=== PATIENT | female | born 1965 | race Caucasian/White ===

== ENCOUNTER → 2025-01-05 10:25 | Outpatient (CLI) | payer OTHER, SELFPAY ==
--- NOTE | ~2025-01-05 | XR_ITS ---
EXAM: XR thoracic spine 2V DATE: 01/05/2025 11:02 HISTORY: mid back pain radiates to LT side 4weeks no injury or trauma . COMPARISON: None available. FINDINGS: Right hemidiaphragm elevation. Subsegmental right basilar airspace disease. Mild right cos tophrenic angle blunting. Multilevel moderate disc space narrowing and mild marginal osteophytosis. M ultiple level mild facet hypertrophy and sclerosis. Mild anterior wedge deformity at T8. Remaining malia dy heights are maintained. IMPRESSION: Mild anterior wedge deformity at T8, may represent mild acute or chronic compression fracture. Correl ate with pain/tenderness. Right hemidiaphragm elevation, consider fluoroscopy to evaluate for diaphragmatic paralysis. Subsegmental right basilar atelectasis/consolidation. Small right pleural effusion. Reviewed, dictated and finalized at location K. IMPRESSION: Mild anterior wedge deformity at T8, may represent mild acute or chronic compre ssion fracture. Correlate with pain/tenderness. Right hemidiaphragm elevation, consider fluoroscopy to evaluate for diaphragmat ic paralysis. Subsegmental right basilar atelectasis/consolidation. Small right pleural effus ion.
== END ==
PROVIDERS: PCP Nurse Practitioner Family; Visit Provider Nurse Practitioner Family
DX: M43.8X4 Other specified deforming dorsopathies, thoracic region (principal); R91.8 Other nonspecific abnormal finding of lung field; J98.6 Disorders of diaphragm; J98.8 Other specified respiratory disorders
CPT/HCPCS: 72070

== ENCOUNTER 2025-01-06 12:20 | Outpatient (CLI) | payer OTHER, SELFPAY ==
--- NOTE | ~2025-01-06 | MM_ITS ---
EXAMINATION: MM screening mira BI w suman HISTORY: Screening TECHNIQUE: Craniocaudal and mediolateral oblique 3-D tomosynthesis images were obtained and synthetic 2-D images were generated. CAD analysis was submitted and interpreted. COMPARISON: No prior mammogram is available for comparison at this institution. BREAST PARENCHYMAL COMPOSITION: Not dense: There are scattered areas of fibroglandular density. FINDINGS: There is no evidence of suspicious mass, calcification, or architectural distortion to sugg est malignancy in either breast. There has been no suspicious interval change. IMPRESSION: 1. No mammographic evidence of malignancy. 2. Recommend routine screening mammography in one year. BI-RADS Category 1: Negative Reviewed, dictated and finalized at location B.
== END 2025-01-06 12:21 | disposition home or self-care (01) ==
PROVIDERS: PCP Nurse Practitioner Family; Visit Provider Family Medicine
DX: Z12.31 Encounter for screening mammogram for malignant neoplasm of breast (principal)
CPT/HCPCS: 77063; 77067

== ENCOUNTER 2025-01-16 08:07 | Outpatient (CLI) | payer OTHER, SELFPAY ==
--- NOTE | ~2025-01-16 | US_ITS ---
US abdomen limited 01/16/2025 08:34 Indication: Left upper quadrant pain Procedure: High-resolution Limited ultrasound of the left upper abdomen Comparison: No prior studies for comparison. Findings: Spleen within normal limits measuring 12.6 cm. There is a probable small accessory splenule measuring 11 mm. Left renal echotexture is normal without hydronephrosis, contour to 4. Left kidney measures 11.9 cm. No free fluid. Impression: 1: Unremarkable left upper abdominal ultrasound. Reviewed, dictated and finalized at location A. Impression: 1: Unremarkable left upper abdominal ultrasound.
== END 2025-01-16 08:08 | disposition home or self-care (01) ==
LOC: MICIMG 08:10
PROVIDERS: PCP Nurse Practitioner Family; Visit Provider Nurse Practitioner Family
DX: R10.12 Left upper quadrant pain (principal)
CPT/HCPCS: 76705

== ENCOUNTER 2025-01-21 07:48 | Outpatient (CLI) | payer OTHER, SELFPAY ==
--- NOTE | ~2025-01-21 | DEXA_ITS ---
Bone Density Report Name: CATHERINE TAI Age: 59 Sex: Female Ethnicity: White Date of : 1965 Indication: postmenopausal; screening for osteoporosis; height loss; prior fracture; hysterectomy; Referring Provider: MATTHEW GÓMEZ Study: Bone densitometry was performed. Exam Date: January 21, 2025 Accession number: [id number] Bone Density: Region BMD T-score Z-score Classification AP Spine(L1-L4) 1.080 0.3 1.7 Normal Femoral Neck (Left) 0.788 -0.5 0.8 Normal Total Hip (Left) 1.079 1.1 2.1 Normal Femoral Neck (Right) 0.763 -0.8 0.5 Normal Total Hip (Right) 1.075 1.1 2.1 Normal Total Hip Mean 1.077 1.1 2.1 Normal World Health Organization criteria for BMD impression classify patients as: Normal (T-score at or above -1.0), Osteopenia (T-score between -1.0 and -2.5), or Osteoporosis (T-score at or below -2.5). 10-year Fracture Risk: FRAX not reported because: All T-scores for Spine Total, Hip Total, Femoral Neck at or above -1.0 Prior hip or vertebral fracture Clinical Information Provided by Patient: Have had a previous hip or vertebral fracture Has had a low trauma fracture Smokes Has used the following medications: Vitamin D Has the following medical conditions: Hysterectomy Patient maximum height was 66.5 Menopause Age: 35 Onset of menses at age 15 Number of children 1 Impression: The patient has normal bone mass. The patient has risk factors, including: smoking, previous fracture. Discussion: INCREASED RISK OF FRACTURE DUE TO HISTORY OF FRACTURE. The patient's previous fracture puts the patient at high risk of a future fracture. In untreated patients, the risk of osteoporotic fracture increases approximately two-fold for each 1.0 SD decrease in T-score. Low bone density is not the only risk factor for fracture; also consider factors such as patient's age, frailty or poor health, risk of falling, risk of injury, previous osteoporotic fracture, family history of osteoporosis, cigarette smoking, low body weight, etc. Not everyone with a low trauma fracture has osteoporosis; osteomalacia and other metabolic bone disorders should also be considered. Patients who have osteoporosis should be evaluated for specific diseases and conditions (secondary causes) that may cause or contribute to bone loss and fracture risk. National Osteoporosis Foundation (NOF) recommends pharmacologic intervention for patients with a prior hip or vertebral fracture regardless of BMD T-score. The patient should follow a healthful lifestyle (good nutrition with adequate calcium and vitamin D, and appropriate weight-bearing exercise). Follow-Up: Consider a repeat BMD and Vertebral Fracture Assessment (VFA) exam in 2 years or sooner if medically necessary, to reassess this patient's status. Reported by: KAY on 01/21/2025 8:27:00 AM. Reviewed, dictated and finalized at location A.
== END 2025-01-21 07:49 | disposition home or self-care (01) ==
LOC: ANHIMG 07:53
PROVIDERS: PCP Nurse Practitioner Family; Visit Provider Nurse Practitioner Family
DX: Z13.820 Encounter for screening for osteoporosis (principal); S22.000A Wedge compression fracture of unspecified thoracic vertebra, initial encounter for closed fracture
CPT/HCPCS: 77080

== ENCOUNTER 2025-01-26 19:34 | Emergency (ER) | payer OTHER, SELFPAY ==
[2025-01-26 19:42] VITALS: PULSE 87; RESP 16; TEMP 37.1; O2SAT 95
--- NOTE | 2025-01-26 19:53 | ED_ITS ---
HPI - Eye Problem General Chief complaint: Eye Problems Stated complaint: left eye irritation Time Seen by Provider: 01/26/25 19:45 Source: patient Mode of arrival: ambulatory Limitations: no limitations History of Present Illness HPI Narrative: Ellie is a 59-year-old female patient presenting to the clinic today with complaints of left eye irritation x1 day. She reports she initially had symptoms of feeling as though she has a gritty sensation in her left eye and she woke up this morning with her eyes matted shut. States there was some yellow discharge. Denies any eye pain or visual changes. No URI symptoms. Related Data Home Medications ?Medication ?Instructions ?Recorded ?Confirmed ?Last Taken ?Type cholecalciferol (vitamin D3) 25 25 mcg PO DAILY 01/05/25 01/12/25 Unknown History mcg (1,000 unit) capsule docusate sodium 100 mg capsule 100 mg PO BID 01/05/25 01/12/25 Unknown History (Colace) polyethylene glycol 3350 17 gram 17 g PO DAILY PRN 01/05/25 01/12/25 Unknown History oral powder packet (Miralax) Allergies Allergy/AdvReac Type Severity Reaction Status Date / Time amoxicillin Allergy Swelling Verified 01/12/25 11:34 ciprofloxacin (From Cipro) Allergy Swelling Verified 01/12/25 11:34 clavulanic acid (From Allergy Rash Verified 01/12/25 11:34 Augmentin) naproxen Allergy Swelling Verified 01/12/25 11:34 Penicillins Allergy Swelling Verified 01/12/25 11:34 Sulfa (Sulfonamide Allergy Swelling Verified 01/12/25 11:34 Antibiotics) metformin AdvReac Intermediate Abdominal Verified 01/12/25 11:34 Pain arithromycin Allergy rash Uncoded 01/12/25 11:34 Review of Systems Review of Systems: Pertinent positives per HPI. Patient denies any fever, chills, rash, headache, visual changes, dizziness, cough, runny nose, sore throat, shortness of breath, chest pain, palpitations, nausea, vomiting, diarrhea, constipation, abdominal pain, or any urinary issues. [facility] Past Medical History Medical History (Updated 01/26/25 @ 19:54 by Sanjiv Rushing APRN) Herpetic marika BMI 36.0-36.9,adult Kidney disease Hypertension Hepatitis Acid reflux Diabetes Allergies Surgical History Surgical History History of partial hysterectomy ovaries spared Family History Family History Mother Diabetes mellitus Cancer covid-19 CKD (chronic kidney disease) Father Cancer Hypertension Immobile, syndrome paraplegic Sibling No problems noted. Social History Social History Smoking status: Current every day smoker Tobacco type: cigarettes Second hand tobacco smoke exposure: No Alcohol intake: former Substance use: never Substance use type: does not use Do You Feel Safe in your Home?: Yes Lack of Transportation: No Current Housing: I Have Housing Concerned About Future Housing: Decline to Answer Difficulty Paying Gas/Electric Bills: Decline to Answer Difficulty Paying for Meds: Decline to Answer Currently Unemployed: Decline to Answer Education: High School Diploma/GED Difficulty w/ Childcare or Family Care: No Living arrangements: with family Occupation/Education: unemployed Additional occupation/education comments: [employer]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 There is no relevant family history pertinent to the patient complaint. Exam Narrative: General: Well-developed, well nourished, in no apparent distress Head: Normocephalic, atraumatic Eyes: Pupils equally round and reactive to light bilaterally, EOM intact, right sclera and conjunctive clear, no discharge, lids normal, left sclera and conjunctiva injected with yellow crusted mucopurulent discharge Ears: TMs intact and clear, ear canals clear, no drainage, grossly hearing normal. Nose: Nares patent, no discharge, no inflammation, no sinus tenderness. Mouth: Oropharynx without lesions or masses, good dentition, MMM. Neck: Supple, trachea midline, no enlargement of anterior or posterior cervical nodes, no thyroid masses or goiter palpable. Cardio: Regular rate and rhythm, s1 and s2 normal, no murmur appreciated. Resp: Clear to auscultation bilaterally anteriorly and posteriorly, no rhonchi, rales, wheezing or rubs Course Course Emergency Course: Portions of this record may have been created with voice recognition software. Level of Care: Express Care Visit Vital Signs Vital signs: Vital Signs Temperature 37.1 C 01/26/25 19:42 Pulse Rate 87 01/26/25 19:42 Respiratory Rate 16 01/26/25 19:42 Pulse Oximetry 95 01/26/25 19:42 Oxygen Delivery Room Air 01/26/25 19:42 Temperature 37.1 C 01/26/25 19:42 Pulse Rate 87 01/26/25 19:42 Respiratory Rate 16 01/26/25 19:42 Pulse Oximetry 95 01/26/25 19:42 Oxygen Delivery Room Air 01/26/25 19:42 Vital signs reviewed MDM - Eye Problem MDM Narrative Medical decision making narrative: At the time of visit patient is resting comfortably on the exam table. Patient appears to be nontoxic. Plan: I suspect patient has conjunctivitis left eye. Prescription for t obramycin eyedrops was sent to the pharmacy. Supportive measures were discussed with the patient and they voiced understanding discharge instructions and agrees to treatment plan. Return precautions reviewed Differential Diagnosis Differential diagnosis: Likely corneal abrasion, conjunctivitis, acute iritis, hyphema, periorbital cellulitis, subconjunctival hemorrhage, glaucoma, corneal ulcer, ruptured globe and other (COVID) Discharge Plan Discharge Clinical Impression: Conjunctivitis Qualifiers: Conjunctivitis type: acute Acute conjunctivitis type: bacterial Laterality: left Qualified Code(s): H10.32 - Unspecified acute conjunctivitis, left eye Patient Disposition: Home Condition: Stable Instructions: Antibiotic Form, Conjunctivitis (ED) Additional Instructions: Conjunctivitis is considered contagious for 24 hours while on the antibiotic. Practice good hand washing techniques Avoid touching eyes Instill eyedrops as prescribed May use warm moist washcloth to help remove eye discharge If eyes are matted shut-do not pry eyes open-use a warm moist cloth to loosen matting and wipe matter away from eye May take Tylenol/Motrin as needed for pain or fever May take Benadryl as needed for itching Follow-up with your PCP in 3-5 days if symptoms persist or sooner if they worsen Go to the emergency room if you develop any fever that is not controlled by Tylenol or Motrin, loss of vision, eye pain, increase eye swelling,visual changes, headache, confusion, lethargy, weakness, chest pain, or shortness of breath. Patient Language: Bengali Prescriptions: New tobramycin 0.3 % drops 1 drp LEFT EYE Q4H 7 Days Qty: 5 0RF No Action docusate sodium [Colace] 100 mg capsule 100 mg PO BID cholecalciferol (vitamin D3) 25 mcg (1,000 unit) capsule 25 mcg PO DAILY polyethylene glycol 3350 [Miralax] 17 gram powder in packet 17 g PO DAILY PRN (DME) lancets [Comfort EZ Lancets] 28 gauge misc See Rx Instructions .Route Qty: 100 0RF Rx Instructions: daily bupropion HCl (smoking deter) 150 mg tablet extended release 12 hr 150 mg PO BID Qty: 60 5RF gabapentin 300 mg capsule 300 mg PO TID Qty: 90 0RF olmesartan 20 mg tablet 20 mg PO .two times daily Qty: 180 3RF gabapentin 100 mg capsule 100 mg PO TID PRN (Reason: nerve pain) Qty: 90 3RF (DME) blood-glucose meter [OneTouch Ultra2 Meter] Misc See Rx Instructions .Route Qty: 1 0RF Rx Instructions: Use to check blood sugar once daily. (DME) OneTouch Ultra Test Strip See Rx Instructions .Route Qty: 100 0RF Rx Instructions: Use to check blood sugar once daily Follow-up/Referrals: Velvet Tesfaye, JC [Primary Care Provider] - Time of Disposition: 19:57 Quality NIHSS Nursing Documentation ED NIHSS nursing documentation: reviewed/agree
== END 2025-01-26 20:00 | disposition home or self-care (01) ==
PROVIDERS: Emergency Provider Nurse Practitioner Family; PCP Nurse Practitioner Family
DX: H10.32 Unspecified acute conjunctivitis, left eye (principal); F17.210 Nicotine dependence, cigarettes, uncomplicated; I10 Essential (primary) hypertension; E11.9 Type 2 diabetes mellitus without complications; K21.9 Gastro-esophageal reflux disease without esophagitis; Z90.711 Acquired absence of uterus with remaining cervical stump
CPT/HCPCS: 99213; G0463

== ENCOUNTER 2025-02-17 20:06 | Inpatient (IN) | payer OTHER, SELFPAY ==
--- NOTE | ~2025-02-17 | XR_ITS ---
XR chest 1V portable Ordering provider: Cristopher Lopez MD History: 59 years Female with . shortness of breath . Comparison: None. FINDINGS: MEDIASTINUM: The cardiac silhouette is slightly enlarged. Congestive dunia. LUNGS: No effusions or pneumothorax. Bilateral interstitial thickening suggestive of pneumonitis vers us pulmonary edema. Right basilar atelectasis versus pneumonia. OTHER: No free air under the diaphragm. IMPRESSION: Cardiomegaly with congestive dunia and interstitial thickening suggestive of pulmonary edema. Pneumoni tis is not excluded. Right basilar atelectasis versus pneumonia. Reviewed, dictated and finalized at location A. IMPRESSION: Cardiomegaly with congestive dunia and interstitial thickening suggestive of pul monary edema. Pneumonitis is not excluded. Right basilar atelectasis versus pneumonia.
--- OUTSIDE RECORDS SUMMARY | 2025-02-17 20:08 | XMS_ITS | Clinical Summary ---
Author Organization [facility] Address [address] [place] [id number] Care Team Providers Care Care Provider Name Role Phone Velvet Tesfaye NP Primary Care Provider [phone] Allergies Active Allergy Reactions Criticality Noted Date Comments Amoxicillin-Pot Clavulanate Swelling 06/23/20 22 Ciprofloxacin Swelling 06/23/2022 Erythromycin Swelling 12/14/2024 Metformin Shortness of Breath,Swelling High 01/19/2025 Naproxen Swelling 06/23/2022 Penicillins Swelling 06/23/2022 Sulfa Antibiotics Swelling 09/16/2022 Medications docusate sodium (COLACE) 50 MG capsule Take 1 capsule (50 mg total) by mouth 2 (two) times daily. Active sertraline (ZOLOFT) 50 MG tabletIndication s:Generalized anxiety disorder,Current mild episode of major depressive disorder, unspecified whether recurrent Take 1 tablet (50 mg total) by mouth daily. 90 tablet 5 025 Active Additional Information Patient not taking.Reason: Other, Reported on 01/19/2025 olmesartan (BENICAR) 40 MG tabletIndication s:Primary hypertension,Typ e 2 diabetes mellitus with chronic kidney disease, without long-term current use of insulin, unspecified CKD stage (CMS/HCC HHS/HCC) Take 1 tablet (40 mg total) by mouth daily. 90 tablet 5 025 Active Cholecalciferol (VITAMIN D-3) 25 MCG (1000 UT) Cap Take 1,000 Int'l Units by mouth daily. Active Coenzyme Q10 (COQ10) 100 MG Cap Take 100 mg by mouth daily. Active gabapentin (NEURONTIN) 100 MG capsule Take 1 capsule (100 mg total) by mouth as needed. daily Active linaCLOtide (LINZESS) 72 MCG capsuleIndicatio ns:Chronic constipation Take 1 capsule (72 mcg total) by mouth every morning before breakfast for 30 days. 30 capsule 5 025 polyethylene glycol-electroly leonidas (NULYTELY) 420 g solutionIndicati ons:Chronic constipation,Enc ounter for screening for malignant neoplasm of colon Take 4,000 mLs by mouth once for 1 dose. Drink an 8oz glass every 10-15 minutes starting at 5:00pm evening prior to colonoscopy until half of the solution is gone. Drink the other half of the jug 8 oz glass every 10-15 minutes until gone starting 5 hours prior to colonoscopy time. 4000 mL 5 025 Active Problems Problem Noted Date Diagnosed Date Nausea 01/19/2025 Gastroparesis 01/19/2025 Acute left flank pain 12/24/2024 Overview (12/24/2024): 12/24/2024: She is complaining of acute left mid back pain and left-sided flank pain for 3 to 4 days. She reports initially she took 2 extra drink Tylenol which helped curb the pain however it returned. Reports she is not present to the emergency department for this complaint. She reports yesterday was her last bowel movement however she had to strain. She reports has been taking MiraLAX for constipation however an hour after taking dose of MiraLAX she experienced a migraine headache with blurry vision. Assessment & Plan (12/24/2024 12:41 PM CDT): UA ordered to evaluate for UTI. CMP and lipase ordered to evaluate for pancreatitis. This could be shingles manifesting prior to vesicular rash. Suspect patient may be having muscle spasm so she can take cyclobenzaprine 10 mg up to every 8 hours as needed for 4 days. Patient counseled to not take NSAIDs in the setting of renal disease. She can take Tylenol up to 3000 mg in a 24-hour period. Dyspepsia 12/24/2024 Overview (12/24/2024): 12/24/2024: She reports she is having belching and burping on a regular basis. She reports is not currently taking Nexium or PPI. Assessment & Plan (12/24/2024 7:17 PM CDT): H. pylori stool test ordered to [facility]. Will treat if positive. Type 2 diabetes mellitus wit h chronic kidney disease, without long-term current use of insulin, unspecified CKD stage ([facility]) 12/14/2024 Overview (12/24/2024): Regimen: Metformin 500 mg oral tablet once daily Hemoglobin A1c: 6.6% (12/14/2024) Eye exam: Due Microalbumin/creatinine: 294.2 (12/14/2024); on ARB olmesartan 20 mg daily Microfilament: Due ; Not following with podiatry Initial visit 12/14/2024: Currently not taking any medication. She reports she never started taking metformin as she thought may be related to sulfa medications and she has allergy to sulfa antibiotics. 12/24/2024: She reports shaking has stopped since starting metformin. She reports she has been checking blood glucose at home with her 's glucometer and she has had readings around 119. Assessment & Plan (12/24/2024 7:22 PM CDT): Counseled patient that she can increase dose of metformin to 500 mg twice daily. Assessment & Plan (12/14/2024 9:43 AM CDT): Will start metformin 500 mg once daily and then after 1 week can increase to twice daily with food. She was counseled on side effects of medication. Renal function testing has been ordered. Primary hypertension 12/14/2024 Overview (12/24/2024): Regimen: Olmesartan 20 mg daily GFR: 56, 12/14/2024 Urine microalbumin to creatinine ratio: 294.2, 12/14/2024 Blood pressure monitoring device at home: Arm and wrist cuff Initial visit 12/14/2024: Not taking anything. She reports she has arm and wrist cuff at home. 12/24/2024: She reports her blood pressure at home has been around 130 Assessment & Plan (12/24/2024 12:14 PM CDT): Blood pressure elevated in office. Increase olmesartan to 40 mg daily. New prescription has been sent in however in the meantime, patient can increase to 2, 20 mg olmesartan tablets daily at the same time. She is to continue monitor blood pressure at home. Assessment & Plan (12/14/2024 9:44 AM CDT): Will start olmesartan 20 mg once daily. She is counseled to take blood pressure measurements at home daily and keep a log and bring in log and device at next appointment. Colon cancer screening 12/14/2024 Overview (12/24/2024): Initial visit 12/14/2024: She denies previously participating in colon cancer screening through colonoscopy, Cologuard or other form. 12/24/2024: Upcoming appointment with general surgery 12/31/2024 Assessment & Plan (12/24/2024 7:25 PM CDT): Is important that patient has colon cancer screening as she is never participated and has had change in bowels. Assessment & Plan (12/14/2024 10:14 AM CDT): Recommend participating in colon cancer screening with screening colonoscopy as she has never participated in colon cancer screening and has underlying medical conditions and has had recent changes in her bowel movements. Referral placed to general surgery. History of herpetic marika 12/14/2024 Overview (12/14/2024): Initial visit 12/14/2024: She reports that her reticulocyte went low affected her left arm. She reports in the past only thing that has been effective is famciclovir 250mg BID for 14 days in addition to Xanax. She reports she has tried valacyclovir in the past and other medications with experiencing side effects. Assessment & Plan (12/14/2024 10:07 AM CDT): No current lesion. Endometriosis 12/14/2024 Overview (12/14/2024): Initial visit 12/14/2024: She reports she had hysterectomy at a young age in 2000 due to endometriosis and ablation of lesions was performed during hysterectomy as well as cervical biopsy. She reports her ovaries were left. Status post hysterectomy 12/14/2024 Overview (12/14/2024): Initial visit 12/14/2024: She reports she had a partial hysterectomy at a young age in 2000 due to endometriosis and ablation of lesions was performed during hysterectomy. She reports her ovaries were not removed. Cigarette nicotine dependenc e with other nicotine-induced disorder 12/14/2024 Overview (12/14/2024): Initial visit 12/14/2024: She reports she has been smoking since approximately 1984. She reports she quit smoking for after . She reports she has been smoking 1/4 pack/day. She reports for the first 10 years of smoking she was only smoking 6 cigarettes a day. She denies previously trialing Chantix or Wellbutrin to help with smoking cessation. She reports she is interested in quitting. She reports she does not want to try Chantix since her had mood changes with that medication. Assessment & Plan (12/14/2024 9:43 AM CDT): Discussed with patient that I would like to trial her on Wellbutrin as it may help with weight loss and smoking cessation however will wait until subsequent appointment as additional medications are already being added today. Class 2 severe obesity with serious comorbidity and body mass index (BMI) of 37.0 to 37.9 in adult, unspecified obesity type 12/14/2024 Overview (12/14/2024): Initial visit 12/14/2024: She reports her weight has increased in the last 10 years. Chronic constipation 12/14/2024 Overview (12/24/2024): Initial visit 12/14/2024: She reports she has been experiencing constipation for at least 1 year. She reports she had stool impaction at home in January 2024 and her manually disimpacted her at home. She reports did not go to the ER. She reports up until recently she has been taking milk of magnesia every 2 to 4 days to help promote bowel movements. She reports she tried MiraLAX 1 capful 1 time with no relief. She reports has been taking 2 Dulcolax stool softeners unknown dose daily. She reports her last bowel movement was 2 to 3 days ago. She denies previously participating in colon cancer screening. 12/24/2024: She is requesting referral to GI. She reports if she takes MiraLAX, an hour afterwards she has migraine headache and vision changes. She reports she is been taking MiraLAX 1 capful daily. She reports yesterday she had a bowel movement and had to strain. She reports she is drinking 6 liters of water and reports she is hungry however cannot eat food such as meat and has only been eating vegetables and beans. She reports she is hungry and she cannot eat food such as meat as it increases her blood sugar. Assessment & Plan (12/24/2024 7:21 PM CDT): Counseled patient to drink at least 1.5 L of fluid daily. Counseled patient that she can add Metamucil fiber supplementation. Referral placed to GI per patient's request. Recommended her to increase MiraLAX to 1 capful twice daily. Will prescribe Linzess 72 mcg for patient to take in the morning to help improve bowel movements. Constipation may be contributing to her acute pain and discomfort. Assessment & Plan (12/14/2024 10:12 AM CDT): Discussed with patient that as she is having bowel changes and has not previously participate in colon cancer screening that we refer to general surgery for her to have colon cancer screening completed. Bowel sounds were hypoactive on physical exam however abdominal exam otherwise unremarkable. To treat her constipation, I would like her to increase her oral fluid intake to 1.5 L/day at least as well as adding Metamucil/psyllium husk 1 teaspoon up to 3 times daily. She can take MiraLAX 1 capful twice daily in addition to her Dulcolax stool softeners until bowel movement occur more regularly. If no improvement, will plan to proceed with ordering CT abdomen pelvis as she could have issues related to adhesions from previous abdominal surgery for endometriosis. Encounter for screening mamm ogram for malignant neoplasm of breast 12/14/2024 Overview (12/14/2024): Initial visit 12/14/2024: She reports last mammogram around age 39. Assessment & Plan (12/14/2024 10:12 AM CDT): Due for mammogram. Ordered to [facility]. Current mild episode of jess r depressive disorder, unspecified whether recurrent 12/14/2024 Overview (12/14/2024): Initial visit 12/14/2024: She reports she was on Paxil in the past for 3 months for migraines which was helpful. PHQ-9: 12/14/2024 8:06 AM PHQ2/PHQ 9 DEPRESSION SCREEN QUESTIONAIRE Little interest or pleasure in doing things Not at all Feeling down, depressed, or hopeless Over half Patient Health Questionnaire-2 Score 2 Trouble falling or staying asleep, or sleeping too much Over half Feeling tired or having little energy Almost all Poor appetite or overeating Not at all Feeling bad about yourself - or that you are a failure or have let yourself or your family down Several days Trouble concentrating on things, such as reading the newspaper or watching television Not at all Moving or speaking so slowly that other people could have noticed? Or the opposite - being so fidgety or restless that you have been moving around a lot more than usual. Not at all Thoughts that you would be better off or hurting yourself in some way Not at all Patient Health Questionnaire-9 Score 8 How difficult have these problems made it for you to do your work, take care of things at home, or get along with other people? Somewhat difficult Assessment & Plan (12/24/2024 12:42 PM CDT): See under generalized anxiety disorder Assessment & Plan (12/14/2024 10:26 AM CDT): PHQ-9 shows mild depression. Discussed with patient that in the setting of her constipation, would like to add sertraline. Will start with 50 mg daily and continue to monitor. Expect this to help with patient's anxiety and depression. Anticipate adding Wellbutrin in the future to help with smoking cessation. Chronic kidney disease, unspecified CKD stage Overview (12/24/2024): Regimen: None GFR: 56, 12/14/2024 Urine microalbumin to creatinine ratio: 294.2, 12/14/2024 Assessment & Plan (12/14/2024 10:16 AM CDT): Suspect CKD stage II. Renal function testing ordered Generalized anxiety disorder 12/14/2024 Overview (12/24/2024): Initial visit 12/14/2024: POOJA-7 (Generalized Anxiety Disorder) Screening 12/14/2024 8:08 AM POOJA-7 Feeling nervous, anxious, or on edge 3 Not being able to stop or control worrying 0 Worrying too much about different things 1 Trouble relaxing 0 Being so restless that it is hard to sit still 0 Becoming easily annoyed or irritable 1 Feeling afraid as if something awful might happen 0 POOJA-7 Total Score 5 How difficult have these problems made it for you to do your work, take care of things at home, or get along with other people? Not difficult at all 12/24/2024: She reports she took 1 dose of sertraline and 30 minutes later experienced headache and other symptoms so she did not take another dose. Assessment & Plan (12/24/2024 12:31 PM CDT): Discussed with patient that medication is highly unlikely to cause side effect or symptom 30 minutes after taking. I would recommend she resume. Assessment & Plan (12/14/2024 10:17 AM CDT): Starting sertraline 50 mg once daily. Will continue to monitor. Need for prophylactic vaccin ation against Streptococcus pneumoniae (pneumococcus) 12/14/2024 Overview (12/14/2024): Initial visit 12/14/2024: She reports she has not received pneumonia vaccine previously. Assessment & Plan (12/14/2024 10:16 AM CDT): She is recommended to get Prevnar 20. She is counseled on vaccine and potential side effects of vaccine. She was given CDC VIS. Gastroesophageal reflux disease without esophagi tis 12/14/2024 Overview (12/14/2024): Initial visit 12/14/2024: She reports in the past she was placed on Nexium however that gave her bladder problems and was placed on ranitidine however that was taken off the market. Resolved Problems Problem Noted Date Diagnosed Date Resolved Date Encounter for screening for malignant neoplasm of colon 01/19/2025 01/25/2025 Need for shingles vaccine 12/14/2024 Encounters Date Type Department Care Team Description 01/29/2025 Orders Only [facility] General Surgery [address], [address] [place] [address] Anjel Yip MD 01/19/2025 10:15 AM CDT Office Visit [address], [address] [place] [address] Anjel Yip MD Consult For Colonoscopy 01/19/2025 Prep for Procedure [address], [address] [place] [address] Anjel Yip MD 01/19/2025 Travel 12/25/2024 Telephone [facility] [place] [address] [place] [address] Bethany Macias, Follow Up Call 12/24/2024 11:00 AM CDT Office Visit [facility] [place] [address] [place] [address] Bethany Macias, DO Back Pain (Pt states she has had the pain for 3 days. /Pt reports no trauma that she is aware of. /Pt states pain is radiating in to side and it sharp. /Pt states it is constant. /Pt states she has tired saeid lax and she has vision loss and migraine. ) 12/24/2024 - 12/24/2024 11:59 PM CDT Hospital Encounter [facility] [address] [place] [address] Bethany Macias, DO Discharge Disposition: Home or Self Care (Routine Discharge) 12/24/2024 Results Follow-Up [place] [address] [address] [facility] [address] [place] [address] Bethany Macias, DO COMPREHENSIVE METABOLIC PANEL, LIPASE, URINALYSIS, Additional followed-up results: 2 12/24/2024 Telephone [place] [address] [address] [facility] [address] [place] [address] Bethany Macias, DO Medication Information 12/24/2024 Travel 12/21/2024 Telephone [place] [address] [address] [facility] [address] [place] [address] Bethany Macias, DO Information 12/18/2024 Telephone [place] [address] [address] [facility] [address] [place] [address] Bethany Macias, DO Blood Pressure 12/15/2024 Results Follow-Up [place] [address] [address] [facility] [address] [place] [address] Bethany Macias, DO MAGNESIUM, VITAMIN B-12, HEPATITIS B SURFACE ANTIBODY, Additional followed-up results: 12 12/14/2024 8:00 AM CDT Office Visit [place] [address] [address] [facility] [address] [place] [address] Bethany Macias, DO New Patient (Wants to discuss her intestines) 12/14/2024 - 12/14/2024 11:59 PM CDT Hospital Encounter [facility] [address] [place] [address] Bethany Macias, DO Discharge Disposition: Home or Self Care (Routine Discharge) 12/14/2024 Travel 12/04/2024 12:52 AM CDT - 12/04/2024 3:17 AM CDT Emergency [facility] [place] [address] Lary Wheeler MD Hypertension Discharge Disposition: Home or Self Care (Routine Discharge) 12/04/2024 Travel from Last 3 Months Immunizations Immunization Administration Dates Next Due Influenza Adult (Generic) 06/06/2019,06/07/2018, 10/08/2016 PFIZER COVID-19 (ORIGINAL FO RMULATION, PURPLE CAP) mRNA, LNP-S, PF, 30 MCG/0.3 ML DOSE 03/09/2021 Pneumococcal (Prevnar 20) 12/14/2024 Tdap (Generic) 06/03/2018 Family History Medical History Relation Comments Pericarditis Brother 2 Thyroid Disease Daughter 2 Arthritis Father Cancer Father tumor on spine Hypertension Father COVID Mother Diabetes Mother Stroke Paternal Grandfather No Known Problems Paternal Grandmother Hairy Cell Lymphoma Paternal Uncle Relation Status Comments Brother 1 Alive Brother 2 Alive Daughter 1 Daughter 2 Alive Father Alive Maternal Grandfather Maternal Grandmother Mother Paternal Grandfather Paternal Grandmother Paternal Uncle Social History Tobacco Use Types Packs/Day Years Used Date Smoking Tobacco: Every Day Cigarettes 1 5.2 Started: 12/18/2024 Smokeless Tobacco: Never Tobacco Cessation:Ready to Q uit: No; Counseling Given: Yes Alcohol Use Standard Drinks/Week Comments Not Currently 0 (1 standard drink = 0.6 oz pur e alcohol) PHQ-2 Answer Date Recorded Patient Health Questionnaire-2 Score 2 12/14/2024 Comments No Sex and Gender Information Value Date Recorded Sex Assigned at Female 12/14/2024 7:57 AM CDT Legal Sex Female 5:53 PM CDT Gender Identity Female 12/14/2024 7:57 AM CDT Sexual Orientation Not on file Last Filed Vital Signs Vital Sign Reading Time Taken Comments Blood Pressure 138/96 01/19/2025 11:09 AM CDT Pulse 87 01/19/2025 10:34 AM CDT Temperature 36.9 C (98.5 F) 01/19/2025 10:34 AM CDT Respiratory Rate 20 01/19/2025 10:3 4 AM CDT Oxygen Saturation 93% 01/19/2025 10: 34 AM CDT Inhaled Oxygen Concentration - - Weight 103.1 kg (227 lb 3.2 oz) 025 10:34 AM CDT Height 167.6 cm (5' 6) 12/24/2024 11:1 0 AM CDT Body Mass Index 36.67 12/24/2024 11:10 AM CDT Plan of Treatment Upcoming Encounters Date Type Department Care Team (Latest Contact Info) Description 04/01/2025 7:30 AM CDT Hospital Encounter [facility] [address] [place] [address] Anjel Yip MD [address] [place] [address], [address] [place] [id number] 04/01/2025 7:30 AM CDT - 04/01/2025 8:45 AM CDT Surgery [facility] [address] [place] [address] Anjel Yip MD [address] [place] [address], [address] [place] [address] [id number] COLONOSCOPY DIAGNOSTIC WITH/WITHOUT SPECIMEN BRUSH/WASH Scheduled Procedures Name Priority Associated Diagnoses Date/Ti me COLONOSCOPY DIAGNOSTIC WITH/WITHOUT SPECIMEN BRUSH/WASH Nausea Chronic constipation Gastroparesis Encounter for screening for malignant neoplasm of colon 04/01/2025 7:30 AM CDT EGD WITH BIOPSY Nausea Chronic constipation Gastroparesis Encounter for screening for malignant neoplasm of colon 04/01/2025 7:30 AM CDT Health Maintenance Due Date Last Done Comments Cervical Cancer Screening Pa p Smear (Age 30 to 64) Every 3 Years 1964 Colorectal Cancer Screening Colonoscopy (10 Years) 1964 Annual Physical 1967 Diabetes: Retinopathy Eye Exam 1982 Cervical Cancer Screening Pa p with HPV Testing (Age 30 to 64) Every 5 Years 1994 Cervical Cancer Screening with HPV 1994 Mammogram Screening 2004 Zoster Vaccines (1 of 2) 2014 RSV Immunization or 60+ Years (1 - Risk 60-74 years 1-dose series) 2024 Hemoglobin A1C 06/15/2025 12/14/2024, 07/20/2024 COVID-19 Vaccine (2 - 2023-2 5 season) 2025 03/09/2021 Postponed from 04/19 (Patient Refused) Kidney Health Evaluation 12/14/2025 12/14/2024 Lipid Panel 12/14/2025 12/14/2024 DTaP, Tdap and Td Vaccines ( 2 - Td or Tdap) 06/03/2028 06/03/2018 Hepatitis C Completed 12/14/2024 PHQ-2 (Physician [place]) Completed 12/14/2024 Pneumococcal Vaccine: 50+ Years Completed 12/14/2024 Meningococcal B Vaccine Aged Out No l onger eligible based on patient's age to complete this topic Meningococcal Vaccine Aged Out No hollis nacho eligible based on patient's age to complete this topic RSV Immunizations Under 20 Months Aged Out No longer eligible b ased on patient's age to complete this topic Goals Goal Patient Goal Type Associated Problems Recent Progress Patient-Stated? Author Autogenerat ed Goal Care Plan Autogenerated Problem No Kimberly Griffiths, pattern weaver Procedure Name Priority Date/Time Associated Diagnosis Comments HELICOBACTER PYLORI, STOOL, EIA Routine 01/02/2025 11:41 AM CDT Dyspepsia URINE BACTERIA CULTURE Routine 12/24/2024 12:04 PM CDT Acute left flank pain URINALYSIS, AUTO, COMPLETE Routine 12/24/2024 12:04 PM CDT Acute left flank pain LIPASE Routine 12/24/2024 12:04 PM CDT Acute left flank pain COMPREHENSIVE METABOLIC PANEL Routine 12/24/2024 12:04 PM CDT Acute left flank pain THYROXINE, FREE (FT4) Routine 12/14/2024 9:34 AM CDT CBC W/DIFF AUTOMATED Routine 12/14/2024 9:34 AM CDT Type 2 diabetes mellitus with chronic kidney disease, without long-term current use of insulin, unspecified CKD stage (CMS/HCC HHS/HCC) Primary hypertension Class 2 severe obesity with serious comorbidity and body mass index (BMI) of 37.0 to 37.9 in adult, unspecified obesity type (CMS/HCC) COMPREHENSIVE METABOLIC PANEL Routine 12/14/2024 9:34 AM CDT Type 2 diabetes mellitus with chronic kidney disease, without long-term current use of insulin, unspecified CKD stage (CMS/HCC HHS/HCC) Primary hypertension LIPID PANEL Routine 12/14/2024 9:34 AM CDT Type 2 diabetes mellitus with chronic kidney disease, without long-term current use of insulin, unspecified CKD stage (CMS/HCC HHS/HCC) Class 2 severe obesity with serious comorbidity and body mass index (BMI) of 37.0 to 37.9 in adult, unspecified obesity type (CMS/HCC) VITAMIN D, 25 OH Routine 12/14/2024 9:34 AM CDT Class 2 severe obesity with serious comorbidity and body mass index (BMI) of 37.0 to 37.9 in adult, unspecified obesity type (CMS/HCC) TSH W/REFLEX Routine 12/14/2024 9:34 AM CDT Class 2 severe obesity with serious comorbidity and body mass index (BMI) of 37.0 to 37.9 in adult, unspecified obesity type (CMS/HCC) HEPATITIS C ANTIBODY Routine 12/14/2024 9:34 AM CDT Encounter for hepatitis C screening test for low risk patient ALBUMIN URINE RANDOM W/CREATININE Routine 12/14/2024 9:34 AM CDT Type 2 diabetes mellitus with chronic kidney disease, without long-term current use of insulin, unspecified CKD stage (CMS/HCC HHS/HCC) Primary hypertension URINALYSIS, AUTO, COMPLETE Routine 12/14/2024 9:34 AM CDT Type 2 diabetes mellitus with chronic kidney disease, without long-term current use of insulin, unspecified CKD stage (CMS/HCC HHS/HCC) Class 2 severe obesity with serious comorbidity and body mass index (BMI) of 37.0 to 37.9 in adult, unspecified obesity type (CMS/HCC) HEPATITIS B CORE ANTIBODY Routine 12/14/2024 9:34 AM CDT Need for hepatitis B screening test HEPATITIS B CORE AB IGM Routine 12/14/2024 9:34 AM CDT Need for hepatitis B screening test HEPATITIS B SURFACE AG, EIA Routine 12/14/2024 9:34 AM CDT Need for hepatitis B screening test HEPATITIS B SURFACE ANTIBODY Routine 12/14/2024 9:34 AM CDT Need for hepatitis B screening test VITAMIN B-12 Routine 12/14/2024 9:34 AM CDT Vitamin B12 deficiency MAGNESIUM Routine 12/14/2024 9:34 AM CDT Type 2 diabetes mellitus with chronic kidney disease, without long-term current use of insulin, unspecified CKD stage (CMS/HCC HHS/HCC) HEMOGLOBIN, GLYCOSYLATED Routine 12/14/2024 Type 2 diabetes mellitus with chronic kidney disease, without long-term current use of insulin, unspecified CKD stage (CMS/HCC HHS/HCC) URINALYSIS, AUTO, COMPLETE STAT 12/04/2024 2:40 AM CDT XR CHEST PORTABLE STAT 12/04/2024 1:3 0 AM CDT COMPREHENSIVE METABOLIC PANEL STAT 12/04/2024 1:08 AM CDT CBC W/DIFF AUTOMATED STAT 12/04/2024 1:08 AM CDT ECG 12-LEAD STAT 12/04/2024 1:00 AM CDT from Last 3 Months Results * HELICOBACTER PYLORI, STOOL, EIA (01/02/2025 11:41 AM CDT) H. PYLORI AG (STOOL) [facility] [employer], [place] Comment: HELICOBACTER PYLORI AG, EIA, STOOL Micro Number: [id number] Test Status: Final Specimen Source: Stool Specimen Quality: Adequate H.pylori Ag: Not Detected Antimicrobials, proton pump inhibitors, and bismuth preparations inhibit H. pylori and ingestion up to two weeks prior to testing may cause false negative results. If clinically indicated the test should be repeated on a new specimen obtained two weeks after discontinuing treatment. Reference Range: Not Detected STOOL SPECIMEN / Unknown 01/02/2025 11:41 AM CDT 01/02/2025 4:51 PM CDT Narrative Resulting Agency Comment Performing Organization Information: Site ID: [id number] Name: [facility] Address: [facility] [place] [address] Director: Hammad Yip Bethany Macias DO MICROBIOLOGY - GENERAL ORDERA BLES Final Result [facility] [employer] - [employer] [address] [id number] * (ABNORMAL) URINALYSIS (12/24/2024 12:04 PM CDT) Only the most recent of2 resultswithin the time period is included. COLOR (U) YELLOW 12/24/2024 7:26 PM CDT [facility] TRANSPARENCY CLEAR CLEAR 12/24/2024 7:26 PM CDT [facility] SPECIFIC GRAVITY (U) <1.005 1.003 - 1.040 12/24/2024 7:26 PM CDT [facility] U PH 6.0 5.0 - 9.0 12/24/2024 7:26 PM CDT [facility] PROTEIN RANDOM (U) NEGATIVE NEGATIVE 12/24/2024 7:26 PM CDT [facility] GLUCOSE (U) NEGATIVE NEGATIVE 12/24/2024 7:26 PM CDT [facility] KETONES MG/DL (U) NEGATIVE NEGATIVE 12/24/2024 7:26 PM CDT [facility] BILIRUBIN (U) NEGATIVE NEGATIVE 12/24/2024 7:26 PM CDT [facility] BLOOD (U) NEGATIVE NEGATIVE 12/24/2024 7:26 PM CDT [facility] UROBILINOGEN 0.2 0.0 - 2.0 EU/DL 12/24/2024 7:26 PM CDT [facility] NITRITES NEGATIVE NEGATIVE 12/24/2024 7:26 PM CDT [facility] LEUKOCYTES (U) 1+(A) NEGATIVE 12/24/2024 7:26 PM CDT [facility] RBC/HPF 0-3 0 - 3 /HPF 12/24/2024 7:26 PM CDT [facility] WBC/HPF 4-9(A) 0 - 3 /HPF 12/24/2024 7:26 PM CDT [facility] EPI/HPF 4-9 /HPF 12/24/2024 7:26 PM CDT [facility] BACTERIA (U) 1+(A) NONE SEEN 12/24/2024 7:26 PM CDT [facility] URINE SPECIMEN FROM URETHRA / Unknown 12/24/2024 12:04 PM CDT us Bethany Macias DO URINE ORDERABLES Final Result [facility] [address] [place] [address], * URINE BACTERIA CULTURE (12/24/2024 12:04 PM CDT) SPEC DESCRIPTION URINE VOIDED 12/24/2024 7:29 PM CDT [facility] SPECIAL REQUEST[facility] NO SPECIAL REQUEST 12/24/2024 7:29 PM CDT [facility] CULTURE RESULT FEW CONTAMINANTS 12/17 11:10 AM CDT [facility] URINE SPECIMEN FROM URETHRA / Unknown 12/24/2024 12:04 PM CDT 12/25/2024 5:11 PM CDT us Bethany Macias DO MICROBIOLOGY - GENERAL ORDERA BLES Final Result [facility] [address] [place] [address], [id number] * (ABNORMAL) COMPREHENSIVE METABOLIC PANEL (12/24/2024 12:04 PM CDT) Only the most recent of3 resultswithin the time period is included. SODIUM S/P/B 138 136 - 145 MMOL/L 12/24/2024 7:23 PM CDT -[facility] POTASSIUM S/P/B 4.5 3.5 - 5.1 MMOL/L 12/24/2024 7:23 PM CDT [facility] CHLORIDE S/P/B 102 98 - 107 MMOL/L 12/24/2024 7:23 PM CDT -[facility] CO2 27.5 21 - 32 MMOL/L 12/24/2024 7:23 PM CDT -[facility] GLUCOSE 161(H) 70 - 99 MG/DL 12/24/2024 7:23 PM CDT [facility] BUN 15 7 - 18 MG/DL 12/24/2024 7:23 PM CDT [facility] CREATININE S/P/B 1.00 0.55 - 1.02 MG/DL 12/24/2024 7:23 PM CDT [facility] CALCIUM S/P/B 9.7 8.4 - 10.5 MG/DL 12/24/2024 7:23 PM [facility] BILIRUBIN TOTAL S/P/B 0.5 0.2 - 1.0 MG/DL 12/24/2024 7:23 PM [facility] ALKALINE PHOSPHATASE S/P/B 87 46 - 118 U/L 12/24/2024 7:23 PM T [facility] AST 19 15 - 37 U/L 12/24/2024 7:23 PM CDT [facility] ALT 28 14 - 59 U/L 12/24/2024 7:23 PM [facility] TOTAL PROTEIN S/P/B 7.7 6.4 - 8.2 G/DL 12/24/2024 7:23 PM [facility] ALBUMIN S/P/B 4.4 3.4 - 5.0 G/DL 12/24/2024 7:23 [facility] GAP 8.5 5 - 15 MMOL/L 12/24/2024 7:23 PM [facility] Comment:REFERENCE RANGE NOT ESTABLISHED OSMOLALITY (CALC) 290 MOSM/KG 025 7:23 PM T [facility] Comment:REFERENCE RANGE NOT ESTABLISHED GFR ESTIMATE 64(L) >90 ML/MIN/1. 73 M2 12/24/2024 7:23 PM [facility] GFR NOTES GFR REFERENCE S: 12/24/2024 7:23 PM [facility] Comment: THE ESTIMATED GFR IS CALCULATED USING THE 2020 CKD-EPI EQUATION. THE FOLLOWING CATEGORIES FOR GRADING RENAL FUNCTION ARE RECOMMENDED BY THE INTERNATIONAL SOCIETY OF NEPHROLOGY (KDIGO 2012 CLINICAL PRACTICE GUIDELINE). G1,NORMAL OR HIGH: >89 ml/min/1.73 m2 G2,MILDLY DECREASED: 60-89 ml/min/1.73 m2 G3A,MILDLY TO MODERATELY DECREASED: 45-59 ml/min/1.73 m2 G3B,MODERATELY TO SEVERELY DECREASED: 30-44 ml/min/1.73 m2 G4,SEVERELY DECREASED: 15-29 ml/min/1.73 m2 G5,KIDNEY FAILURE: <15 ml/min/1.73 m2 12/24/2024 12:0 4 PM CDT Bethany M Gilberto DO LABORATORY Final Result Performing Organization Address City/[facility]/ZIP Co de Phone Number [facility] [address] [place] [address], [place] [phone] * LIPASE (12/24/2024 12:04 PM CDT) LIPASE 27 16 - 77 UNITS/L 12/24/2024 7:17 PM CDT [facility] Comment:NEW REFERENCE RANGE 12/24/2024 12:0 4 PM CDT Bethany Macias DO LABORATORY Final Result Performing Organization Address [facility] Co de Phone Number [address] [address], [place] [phone] * (ABNORMAL) TSH W/REFLEX (12/14/2024 9:34 AM CDT) TSH 4.136(H) 0.358 - 3.740 uIU/ML 12/14/2024 3:21 PM CDT [facility] 12/14/2024 9:34 AM CDT Bethanyulcita Macias DO LABORATORY Final Result Performing Organization Address [facility]/ZIP Co de Phone Number [address] [address], [place] [phone] * VITAMIN B-12 (12/14/2024 9:34 AM CDT) VITAMIN B12 S/P/B 394 193 - 986 PG/ML 12/14/2024 3:21 PM CDT [facility] 12/14/2024 9:34 AM CDT Bethany Macias DO LABORATORY Final Result [facility] [address] [place] [address], * (ABNORMAL) ALBUMIN URINE RANDOM W/CREATININE (12/14/2024 9:34 AM CDT) MICROALBUMIN (U) 95.6(H) <20 MG/L 12/15/19 3:37 PM CDT [facility] CREATININE RANDOM (U) 32.5 MG/DL 12/14/2024 3:37 PM CDT [facility] ALBUMIN/CREAT RATIO 294.2(H) <30 MG/G 12/14/2024 3:37 PM CDT [facility] URINE SPECIMEN / Unknown 12/14/2024 9:34 AM CDT Bethany Macias DO URINE ORDERABLES Final Result [facility] [address] [place] [address], * (ABNORMAL) LIPID PANEL (12/14/2024 9:34 AM CDT) CHOLESTEROL 194 <200 MG/DL 12/14/2024 3:21 PM CDT [facility] TRIGLYCERIDES 159(H) <150 MG/DL 12/14/2024 3:21 PM CDT [facility] HDL 43 >40 MG/DL 12/14/2024 3:21 PM CDT [facility] LDL-C 119(H) <100 MG/DL 12/14/2024 3:21 PM CDT [facility] VLDL CALCULATION 32(H) 5 - 28 MG/DL 12/14/2024 3:21 PM CDT [facility] CHOL/HDL RATIO 4.5(H) 0.0 - 4.0 12/14/2024 3:21 PM CDT [facility] LDL/HDL 2.8(H) 0.41 - 2.13 12/14/2024 3:21 PM CDT [facility] NON HDL CHOLESTEROL 151(H) <140 MG/DL 12/14/2024 3:21 PM CDT [facility] 12/14/2024 9:34 AM CDT Bethany Macias DO LABORATORY Final Result Performing Organization Address [facility]/ZIP Co de Phone Number [facility] [address] [place] [address], [place] [phone] * HEPATITIS C ANTIBODY (12/14/2024 9:34 AM CDT) HEPATITIS C AB NON-REACTI VE NON-REACT JOSE 12/14/2024 6:50 PM CDT [facility] Comment: ANTIBODIES TO HCV NOT DETECTED. DOES NOT EXCLUDE THE POSSIBILITY OF EXPOSURE TO HCV. 12/14/2024 9:34 AM CDT Bethany Macias DO LABORATORY Final Result [facility] [address] [place] [address], [place] [phone] * HEPATITIS B SURFACE AG, EIA (12/14/2024 9:34 AM CDT) HEPATITIS B SURFACE AG NON-REACTI VE NON-REACTI VE 12/14/2024 6:50 PM CDT [facility] Comment:HBsAg NOT DETECTED. 12/14/2024 9:34 AM CDT us Bethany Macias DO LABORATORY Final Result Performing Organization Address [facility] Co de Phone Number [facility] [address] [place] [address], [place] [phone] * (ABNORMAL) HEPATITIS B SURFACE ANTIBODY (12/14/2024 9:34 AM CDT) HEP B SURFACE AB <3.1(L) >9.9 MIU/ML 12/14/2024 6:50 PM CDT [facility] Comment:INDIVIDUAL IS CONSID ERED NOT IMMUNE TO HBV INFECTION. 12/14/2024 9:34 AM CDT us Bethany Macias DO LABORATORY Final Result Performing Organization Address [facility] de Phone Number [facility] [address] [place] [address], [place] [phone] * HEPATITIS B CORE ANTIBODY (12/14/2024 9:34 AM CDT) HEP B CORE TOTAL AB NON-REACTI VE NON-REACTI VE 12/14/2024 6:50 PM CDT [facility] Comment:IgM and IgG anti HBc not detected. 12/14/2024 9:34 AM CDT Bethany Macias DO LABORATORY Final Result Performing Organization Address [facility] de Phone Number [facility] [address] [place] [address], [place] [phone] * HEPATITIS B CORE AB IGM (12/14/2024 9:34 AM CDT) HEP B CORE IGM NON-REACT JOSE NON-REACT JOSE 12/14/2024 6:50 PM CDT [facility] Comment: IgM ANTI HBc NOT DETECTED. DOES NOT EXCLUDE THE POSSIBILITY OF EXPOSURE TO OR INFECTION WITH HBV. NO RETEST REQUIRED. HIGH DOSES OF BIOTIN MAY INTERFERE WITH THIS TEST RESULT. CORRELATION TO CLINICAL HISTORY AND PRESENTATION RECOMMENDED. 12/14/2024 9:34 AM CDT Bethany M Gilberto PAZ LABORATORY Final Result [facility] [address] [place] [address], [id number] * (ABNORMAL) CBC W/DIFF AUTOMATED (12/14/2024 9:34 AM CDT) Only the most recent of2 resultswithin the time period is included. WBC 9.94 4.00 - 10.80 x10'3/uL 12/14/2024 2:10 PM CDT [facility] RBC 5.19 4.10 - 5.40 x10'6/uL 12/14/2024 2:10 PM CDT [facility] HGB 16.6(H) 12.0 - 16.0 G/DL 12/14/2024 2:10 PM CDT [facility] HCT 49.8(H) 36.0 - 47.0 % 12/14/2024 2:10 PM CDT [facility] MCV 96.0 78.0 - 100.0 FL 12/14/2024 2:10 PM CDT [facility] MCH 32.0(H) 27.0 - 31.0 PG 12/14/2024 2:10 PM CDT [facility] MCHC 33.3 33.0 - 36.0 G/DL 12/14/2024 2:10 PM CDT [facility] RDW 12.4 11.5 - 14.5 % 12/14/2024 2:10 PM CDT [facility] PLT 323 150 - 350 x10'3/uL 12/14/2024 2:10 PM CDT [facility] MPV 9.7 7.4 - 10.4 FL 12/14/2024 2:10 PM CDT [facility] DIFFERENTIAL TYPE AUTOMATED DIFFERENTIAL 12/14/2024 2:10 PM CDT [facility] NEUTROPHILS % 64.4 % 12/14/2024 2:10 PM CDT [facility] LYMPHOCYTES % 26.0 % 12/14/2024 2:10 PM CDT [facility] MONOCYTES % 7.1 % 12/14/2024 2:10 PM CDT [facility] EOSINOPHILS % 1.6 % 12/14/2024 2:10 PM CDT [facility] BASOPHILS % 0.6 % 12/14/2024 2:10 PM CDT [facility] IMMATURE GRANS % 0.3 % 12/14/2024 2:10 PM CDT [facility] ABS. NEUTROPHILS 6.40 1.60 - 8.30 x10'3/uL 12/14/2024 2:10 PM CDT [facility] ABS. LYMPHOCYTES 2.58 0.80 - 4.70 x10'3/uL 12/14/2024 2:10 PM CDT [facility] ABS. MONOCYTES 0.71 0.00 - 1.50 x10'3/uL 12/14/2024 2:10 PM CDT [facility] ABS. EOSINOPHILS 0.16 0.00 - 0.40 x10'3/uL 12/14/2024 2:10 PM CDT [facility] ABS. BASOPHILS 0.06 0.00 - 0.20 x10'3/uL 12/14/2024 2:10 PM CDT [facility] ABS. IMMATURE GRANULOCYTES 0.03 0.00 - 0.03 x10'3/uL 12/14/2024 2:10 PM CDT [facility] 12/14/2024 9:34 AM CDT Bethanylucita Macias LABORATORY Final Result Performing Organization Address [facility]/ZIP Co de Phone Number [facility] [address] [place] [phone], * THYROXINE, FREE (FT4) (12/14/2024 9:34 AM CDT) FREE T4 1.20 0.76 - 1.46 NG/DL 12/14/2024 3:55 PM CDT [facility] 12/14/2024 9:34 AM CDT Bethany Fela Macias DO LABORATORY Final Result Performing Organization Address [facility] Co de Phone Number [address] [address], [place] [phone] * (ABNORMAL) VITAMIN D, 25 OH (12/14/2024 9:34 AM CDT) Pathologist [facility] VITAMIN D 25 HYDROXY TOTAL S/P/B 7.0(L) 30 - 100 NG/ML 12/14/2024 3:21 PM CDT [facility] Comment: DEFICIENT <20 INSUFFICIENT 20-30 SUFFICIENT 30-100 12/14/2024 9:34 AM CDT Bethany Macias LABORATORY Final Result Performing Organization Address City/[facility] Co de Phone Number [address] [address], * MAGNESIUM (12/14/2024 9:34 AM CDT) MAGNESIUM 1.9 1.8 - 2.4 MG/DL 12/14/2024 3:21 PM CDT [facility] 12/14/2024 9:34 AM CDT Bethany Macias DO LABORATORY Final Result [facility] [address] [facility] [place] [address], * HEMOGLOBIN, GLYCOSYLATED (12/14/2024) HGB A1C 6.6 % [id number] [place] 12/14/2024 Bethany Macias LABORATORY Final Result Performing Organization Address City/[facility]/ZIP Co de Phone Number [id number] [place] [address] [place] [address], * (ABNORMAL) URINALYSIS, AUTO, COMPLETE (12/04/2024 2:40 AM CDT) SPECIMEN TYPE URINE CLEAN CATCH 12/04/2024 2:32 AM CDT [facility] COLOR (U) COLORLESS 12/04/2024 3:07 AM CDT [facility] TRANSPARENCY CLEAR 12/04/2024 3:07 AM CDT [facility] SPECIFIC GRAVITY (U) 1.010 1.001 - 1.030 12/04/2024 3:07 AM CDT [facility] U PH 5.0 5.0 - 9.0 12/04/2024 3:07 AM CDT [facility] LEUKOCYTES (U) 75(A) NEGATIVE 12/04/2024 3:07 AM CDT [facility] NITRITES NEGATIVE NEGATIVE 12/04/2024 3:07 AM CDT [facility] PROTEIN RANDOM (U) NEGATIVE <30 MG/DL 12/04/2024 3:07 AM CDT [facility] GLUCOSE (U) NORMAL NORMAL MG/DL 12/04/2024 3:07 AM CDT [facility] KETONES MG/DL (U) NEGATIVE NEGATIVE MG/DL 12/04/2024 3:07 AM CDT [facility] UROBILINOGEN NORMAL NORMAL MG/DL 12/04/2024 3:07 AM CDT [facility] BILIRUBIN (U) NEGATIVE NEGATIVE MG/DL 12/04/2024 3:07 AM CDT [facility] BLOOD (U) NEGATIVE NEGATIVE 12/04/2024 3:07 AM CDT [facility] MUCUS RARE /LPF 12/04/2024 3:07 AM CDT [facility] WBC/HPF 5 <6 /HPF 12/04/2024 3:07 AM CDT [facility] RBC/HPF 2 <6 /HPF 12/04/2024 3:07 AM CDT [facility] BACTERIA (U) RARE(A) NONE /HPF 12/04/2024 3:07 AM CDT [facility] SQUAMOUS EPITHELIALS RARE /HPF 12/04/2024 3:07 AM CDT [facility] URINE SPECIMEN OBTAINED BY CLEAN CATCH PROCEDURE / Unknown 12/04/2024 2:40 AM CDT us Sherry HAAS URINE ORDERABLES Final Res ult [facility] [address] [place] [address], [place] [phone] * XR CHEST PORTABLE (12/04/2024 1:30 AM CDT) Anatomical Region Laterality Modality Chest Radiographic Yamile ging 12/04/2024 1:34 AM CDT Impressions 12/04/2024 1:36 AM CDT IMPRESSION: Minimal right basilar opacity that could be due to minimal atelectasis, trace pleural effusion, and/or pneumonia. Referred By: Interpreted By: Miller García DO, 12/04/2024 1:34 AM Narrative 12/04/2024 1:36 AM CDT [facility] [address] [place], [place] [address] Examination: XR CHEST PORTABLE Exam time: 12/04/2024 1:23 AM Clinical history: Weakness, hyperglycemia, and hypertension. Comparison: Chest radiographs 2024 and 07/20/2024. Technique: Upright AP portable radiograph of the chest. Findings: The cardiomediastinal silhouette is normal in size. Pulmonary vasculature is appropriately distributed. There are atherosclerotic calcifications of the thoracic aorta. There is elevation of the right hemidiaphragm appearing similar to the prior examination. There is minimal right basilar opacity that could be due to minimal atelectasis, trace pleural effusion, and/or pneumonia. There is no sizable left-sided pleural effusion. No pneumothorax is seen. Procedure Note Miller García DO - 12/04/2024 [facility] [address] [place], [place] [address] Examination: XR CHEST PORTABLE Exam time: 12/04/2024 1:23 AM Clinical history: Weakness, hyperglycemia, and hypertension. Comparison: Chest radiographs 2024 and 07/20/2024. Technique: Upright AP portable radiograph of the chest. Findings: The cardiomediastinal silhouette is normal in size. Pulmonary vasculatureis appropriately distributed. There are atherosclerotic calcifications ofthe thoracic aorta. There is elevation of the right hemidiaphragmappearing similar to the prior examination. There is minimal rightbasilar opacity that could be due to minimal atelectasis, trace pleuraleffusion, and/or pneumonia. There is no sizable left- sided pleuraleffusion. No pneumothorax is seen. IMPRESSION: Minimal right basilar opacity that could be due to minimal atelectasis,trace pleural effusion, and/or pneumonia. Referred By: Interpreted By: Miller García DO, 12/04/2024 1:34 AM us Sherry HAAS [facility] Final Resu lt * ECG 12 lead (12/04/2024 1:00 AM CDT) 12/04/2024 1:00 AM CDT Narrative [facility] RAD - 12/04/2024 3:55 PM CDT [place] Test Date: 2024-12-04 Pat Name: ELLIEMARINA MCMAHONES Department: 41 Room: EXAM21 Gender: Female Cot Assembler: : 1965 Requested By: SHERRY MAYES Order Number: [id number] Reading MD: Kita Acosta Measurements Intervals [place] Rate: 95 P: 61 [place]: 142 QRS: -26 QRSD: 93 T: 36 QT: 337 QTc: 424 Interpretive Statements SINUS RHYTHM BORDERLINE LEFT AXIS DEVIATION [QRS AXIS < -20] No previous ECG available for comparison Procedure Note Kita Acosta MD - 12/04/[address] [place] Test Date: 2024-12-04 Pat Name: ELLIEMARINA MCMAHONES Department: 41 Room: EXAM21 Gender: Female Cot Assembler: : 1965 Requested By: SHERRY MAYES Order Number: [id number] Reading RAYMOND Acosta Measurements Intervals [place] Rate: 95 P: 61 [place]: 142 QRS: -26 QRSD: 93 T: 36 QT: 337 QTc: 424 Interpretive Statements SINUS RHYTHM BORDERLINE LEFT AXIS DEVIATION [QRS AXIS < -20] No previous ECG available for comparison us Sherry HAAS ECG ORDERABLES Final Resu lt [facility] RAD from Last 3 Months Additional Health Concerns Active Problems Noted Date Diagnosed Date Autogenerated Problem 01/19/2025 Insurance [employer] Care Teams Care Provider Relationship Specialty Start Date End Date Velvet Tesfaye NP [address] [place] [address] PCP - General FAMILY PRACTICE 01/19/25 04/11/25
--- NOTE | 2025-02-17 20:21 | ED_ITS ---
HPI - SOB/Dyspnea General Chief Complaint: Shortness of Breath/Dyspnea Stated Complaint: shortness of breath Time Seen by Provider: 02/17/25 20:08 History of Present Illness HPI Narrative: 59-year-old female with a history of hypertension, diabetes, CKD presenting to the emergency depart with respiratory complaints. She states she has been having a cough and upper respiratory infection for last several days that her family members are also sick with but she started turning worse today. She appears in distress and is hypoxic in triage. She was brought back to room a for resuscitation. She states that she has had pneumonia recently in July of last year in this feels similar. Does have some albuterol inhalers at home and she has tried using them without any relief of her symptoms. Does smoke daily and longstanding tobacco use. No fever but reports chills. No chest pain or nausea, vomiting, abdominal pain, back pain. She was otherwise in her normal state of health except for the last few days. Related Data Home Medications ?Medication ?Instructions ?Recorded ?Confirmed ?Last Taken ?Type cholecalciferol (vitamin D3) 25 25 mcg PO DAILY 01/05/25 02/17/25 02/17/25 History mcg (1,000 unit) capsule docusate sodium 100 mg capsule 100 mg PO BID 01/05/25 02/17/25 02/17/25 History (Colace) Allergies Allergy/AdvReac Type Severity Reaction Status Date / Time amoxicillin Allergy Swelling Verified 02/17/25 21:20 ciprofloxacin (From Cipro) Allergy Swelling Verified 02/17/25 21:20 clavulanic acid (From Allergy Rash Verified 02/17/25 21:20 Augmentin) naproxen Allergy Swelling Verified 02/17/25 21:20 Penicillins Allergy Swelling Verified 02/17/25 21:20 Sulfa (Sulfonamide Allergy Swelling Verified 02/17/25 21:20 Antibiotics) metformin AdvReac Intermediate Abdominal Verified 02/17/25 21:20 Pain arithromycin Allergy rash Uncoded 02/17/25 21:20 Review of Systems 2 Review of Systems: As reviewed above in HPI [facility] Past Medical History Medical History Herpetic marika BMI 36.0-36.9,adult Kidney disease Hypertension Hepatitis Acid reflux Diabetes Allergies Surgical History Surgical History History of partial hysterectomy ovaries spared Family History Family History Mother Diabetes mellitus Cancer covid-19 CKD (chronic kidney disease) Father Cancer Hypertension Immobile, syndrome paraplegic Sibling No problems noted. Social History Social History Smoking status: Current every day smoker Tobacco type: cigarettes Second hand tobacco smoke exposure: No Alcohol intake: former Substance use: never Substance use type: does not use Do You Feel Safe in your Home?: Yes Lack of Transportation: No Current Housing: I Have Housing Concerned About Future Housing: Decline to Answer Difficulty Paying Gas/Electric Bills: Decline to Answer Difficulty Paying for Meds: Decline to Answer Currently Unemployed: Decline to Answer Education: High School Diploma/GED Difficulty w/ Childcare or Family Care: No Living arrangements: with family Occupation/Education: unemployed Additional occupation/education comments: [employer] Gender identity (if verbalized by the patient): Female Exam 2 Narrative: GENERAL: Respiratory distress with tachypnea and tripod positioning, hypoxia, awake and answering questions but dyspneic HEAD: [Normocephalic, atraumatic.] EYES: [PERRLA and EOMI.] ENT: Nares clear, no rhinorrhea or epistaxis. Mucous membranes moist. NECK: Supple. CHEST: Respiratory distress with tachypnea and tripod positioning, hypoxia, awake and answering questions but dyspneic. Coarse bilateral breath sounds with wheezing HEART: Mildly tachycardic rate, regular rhythm. No murmur heard. [Normal peripheral pulses.] ABDOMEN: [Soft, nondistended], [nontender], [No rigidity or guarding] EXTREMITIES: Normal range of motion. [No edema.] SKIN: Warm, dry, no rash. NEURO: [No focal deficits]. Alert and oriented [x3.] PSYCH: [Normal mood and affect.] Course Vital Signs Vital signs: Vital Signs Temperature 36.6 C 02/17/25 20:30 Pulse Rate 97 02/17/25 20:30 Respiratory Rate 27 H 02/17/25 20:30 Blood Pressure 153/85 H 02/17/25 20:30 Pulse Oximetry 99 02/17/25 20:30 Oxygen Delivery Nasal Cannula 02/17/25 20:30 Oxygen Flow Rate 2 02/17/25 20:30 Temperature 36.6 C 02/17/25 20:30 Pulse Rate 103 H 02/17/25 21:19 Respiratory Rate 24 H 02/17/25 20:39 Blood Pressure 153/85 H 02/17/25 20:30 Pulse Oximetry 98 02/17/25 21:17 Oxygen Delivery Nasal Cannula 02/17/25 21:17 Oxygen Flow Rate 2 02/17/25 21:17 MDM - SOB/Dyspnea MDM Narrative Medical decision making narrative: 59-year-old female with a history of hypertension, diabetes, CKD presenting to the emergency depart with respiratory complaints. She states she has been having a cough and upper respiratory infection for last several days that her family members are also sick with but she started turning worse today. She appears in distress and is hypoxic in triage. She was brought back to room a for resuscitation. She states that she has had pneumonia recently in July of last year in this feels similar. Does have some albuterol inhalers at home and she has tried using them without any relief of her symptoms. Does smoke daily and longstanding tobacco use. No fever but reports chills. No chest pain or nausea, vomiting, abdominal pain, back pain. She was otherwise in her normal state of health except for the last few days. Patient appears in respiratory distress with tripod positioning and coarse bilateral breath sounds with some wheezing. She has hypoxic to 88% on room air requiring supplemental oxygen which some improvement. She has signs and symptoms of a pneumonia with potential other causes such as bronchospastic process or COPD exacerbation causing her symptoms. Low suspicion cardiac in nature or volume overload state causing respiratory symptoms. Respiratory was called for albuterol and Atrovent and she was given magnesium, chest x-ray ordered an EKG obtained. Basic laboratory studies drawn. Patient was re-evaluated after nebulization treatments and magnesium and had significant improvement in respiratory status. No longer in respiratory distress and able to sit back in her bed comfortably. Breath sounds are clearing up and wheezing has improved. Her x-ray shows right-sided pneumonia for which she was started on Rocephin and clarithromycin (discussed previously that azithromycin did not work for her but Biaxin did) her laboratory studies reviewed shows no leukocytosis or significant anemia. She is hemoconcentrated and provided fluids. Electrolytes unremarkable. Glucose 190, LFTs normal. Patient required admission to the hospital at this time given oxygen requirements and IV antibiotics for pneumonia. Blood cultures are drawn and I spoke to the hospitalist team accepted the patient to a telemetry monitored bed at this time. Patient and family updated on plan and comfortable with admission. Medical Records Attestation: I reviewed the patient's medical records. Lab Data Attestation: I reviewed the patient's lab results. 02/17/25 20:25 02/17/25 20:25 Labs: Lab Results 02/17/25 Range/Units 20:25 WBC 10.0 (4.5-10.0) K/mm3 RBC 5.09 (4.2-5.4) M/mm3 Hgb 16.2 H (12.0-15.0) g/dL Hct 48.6 H (37.0-47.0) % MCV 95.5 (80-100) fl MCH 31.8 (26-34) pg MCHC 33.3 (32-36) g/dl RDW 12.9 (11.5-14.5) % Plt Count 235 (150-375) k/mm3 MPV 9.0 (7.4-10.4) fl Immature Gran % (Auto) 0.5 (0-0.5) % Neut % (Auto) 72.8 (45.5-73.1) % Lymph % (Auto) 13.2 L (18.3-44.2) % [place] % (Auto) 10.8 H (2.6-8.5) % Eos % (Auto) 2.1 (0-4.4) % Baso % (Auto) 0.6 (0.2-1.2) % Lymph # (Auto) 1.31 (0.9-3.2) K/mm3 [place] # (Auto) 1.1 H (0.1-0.6) K/mm3 Eos # (Auto) 0.2 (0-0.3) K/mm3 Baso # (Auto) 0.1 (0.0-0.1) K/mm3 Abs Immat Gran (auto) 0.05 H (0.00-0.031) K/mm3 Absolute Neuts (auto) 7.3 H (1.3-6.7) K/mm3 Absolute Nucleated RBC 0.000 (0.0-0.012) K/mm3 Nucleated RBC % 0.0 (0.0-0.2) % Sodium 135 L (137-145) mmol/L Potassium 4.8 (3.4-5.0) mmol/L Chloride 101 (98-107) mmol/L Carbon Dioxide 24 (22-30) mmol/L Anion Gap 10 (4-12) mmol/L BUN 16 (7-17) mg/dL Creatinine 1.09 H (0.7-1.0) mg/dL Estim Creat Clear Calc Not Reportable Estimated GFR 51 L (59 - ) Glucose 190 H (65-110) mg/dL Calcium 9.1 (8.4-10.2) mg/dL Magnesium 2.0 (1.6-2.3) mg/dL Total Bilirubin 0.7 (0.2-1.3) mg/dL AST 29 (14-36) U/L ALT 18 (6-35) U/L Alkaline Phosphatase 77 (38-126) U/L Total Protein 8.6 H (6.3-8.2) g/dL Albumin 4.7 (3.5-5.1) g/dL Imaging Data Attestation: I personally reviewed and interpreted this imaging study as follows: My impression: Impressions Chest X-Ray 02/17/25 21:05 IMPRESSION: Cardiomegaly with congestive dunia and interstitial thickening suggestive of pulmonary edema. Pneumonitis is not excluded. Right basilar atelectasis versus pneumonia. Critical Care Time Critical Care Time Critical Care Time: Yes Total Critical Care Time: 35 Discharge Plan Discharge Clinical Impression: Acute hypoxemic respiratory failure, Acute pneumonia, Breathing difficulty Patient Disposition: Still a Patient Condition: Stable Patient Language: [place] Prescriptions: No Action docusate sodium [Colace] 100 mg capsule 100 mg PO BID cholecalciferol (vitamin D3) 25 mcg (1,000 unit) capsule 25 mcg PO DAILY (DME) lancets [Comfort EZ Lancets] 28 gauge misc See Rx Instructions .Route Qty: 100 0RF Rx Instructions: daily bupropion HCl (smoking deter) 150 mg tablet extended release 12 hr 150 mg PO BID Qty: 60 5RF olmesartan 20 mg tablet 20 mg PO .two times daily Qty: 180 3RF gabapentin 100 mg capsule 100 mg PO TID PRN (Reason: nerve pain) Qty: 90 3RF (DME) blood-glucose meter [OneTouch Ultra2 Meter] Misc See Rx Instructions .Route Qty: 1 0RF Rx Instructions: Use to check blood sugar once daily. (DME) OneTouch Ultra Test Strip See Rx Instructions .Route Qty: 100 0RF Rx Instructions: Use to check blood sugar once daily Follow-up/Referrals: Velvet Tesfaye APRN [Primary Care Provider] - Time of Disposition: 21:45
[2025-02-17 20:30] VITALS: BP 153/85; PULSE 97; RESP 27; TEMP 36.6; O2SAT 99
[2025-02-17] MEDS: MAGNESIUM SULF 2 GM/WATER 50ML 2 GM/50 ML BAG IVPB (20:34)
[2025-02-17] MEDS: IPRATROPIUM BR 0.02% INH SOLN 0.5 MG/2.5 ML VIAL 1 MG INHALATION (20:34)
[2025-02-17] MEDS: LACTATED RINGERS 1,000 ML 999 ML IV CONT (20:34)
[2025-02-17] MEDS: ALBUTEROL SULFATE NEB 2.5 MG/3 ML INH 10 MG INHALATION (20:34)
[2025-02-17 20:36] LABS: Hematocrit 48.6 % (37.0-47.0); Hemoglobin 16.2 g/dL (12.0-15.0); Immature Granulocyte Percent A 0.5 % (0-0.5); Lymphocytes Absolute Auto 1.31 K/mm3 (0.9-3.2); Mean Corpuscular HGB Conc 33.3 g/dl (32-36); Mean Corpuscular Hemoglobin 31.8 pg (26-34); Mean Corpuscular Volume 95.5 fl (80-100); Nucleated Red Blood Cells Absolute Auto 0.000 K/mm3 (0.0-0.012); Nucleated Red Blood Cells Perc 0.0 % (0.0-0.2); Platelet Count Result 235 k/mm3 (150-375); Red Blood Count 5.09 M/mm3 (4.2-5.4); White Blood Count 10.0 K/mm3 (4.5-10.0)
[2025-02-17 20:39] VITALS: PULSE 94; RESP 24
[2025-02-17 20:48] LABS: Alanine Aminotransferase 18 U/L (6-35); Albumin Level 4.7 g/dL (3.5-5.1); Alkaline Phosphatase 77 U/L (38-126); Anion Gap 10 mmol/L (4-12); Aspartate Amino Transferase 29 U/L (14-36); Bilirubin,Total 0.7 mg/dL (0.2-1.3); Blood Urea Nitrogen 16 mg/dL (7-17); Calcium 9.1 mg/dL (8.4-10.2); Carbon Dioxide 24 mmol/L (22-30); Chloride 101 mmol/L (98-107); Estimated Glomerular Filt Rate 51; Glucose 190 mg/dL (65-110); Magnesium 2.0 mg/dL (1.6-2.3); Potassium 4.8 mmol/L (3.4-5.0); Sodium 135 mmol/L (137-145); Total Protein 8.6 g/dL (6.3-8.2)
[2025-02-17 21:17] VITALS: O2SAT 98
[2025-02-17 21:19] VITALS: PULSE 103
[2025-02-17 21:49] VITALS: PULSE 108; RESP 23
[2025-02-17] MEDS: CLARITHROMYCIN 500 MG 1000 MG PO (21:56)
--- OUTSIDE RECORDS SUMMARY | 2025-02-17 21:57 | XMS_ITS | Clinical Summary ---
Author Organization [facility] Address [address] [place] [address] Care Team Providers Care Cnc Maintenance Mechanic Name Role Phone Velvet Tesfaye NP Primary Care Provider [phone] Allergies Active Allergy Reactions Criticality Noted Date [...] current use of insulin, unspecified CKD stage ([facility]) 12/14/2024 Overview (12/24/2024): Regimen: Metformin 500 [...] AM CDT): Due for mammogram. Ordered to [facility]. Current mild episode of jess r depressive [...] Department Care Team Description 01/29/2025 Orders Only [facility] General Surgery [address], [address] [place] [address] Anjel Yip MD 01/19/2025 10:15 AM CDT Office Visit [address], [address] [place] [address] Anjel Yip MD Consult For Colonoscopy 01/19/2025 Prep for Procedure [address], [address] [place] [address] Anjel Yip MD 01/19/2025 Travel 12/25/2024 [facility] [place] [id number] [place] [address] Bethany Macias, Follow Up Call 12/24/2024 11:00 AM CDT [facility] [place] [address] [place] [address] Bethany Macias, DO Back Pain (Pt states she has had the pain for 3 days. /Pt reports no trauma that she is aware of. /Pt states pain is radiating in to side and it sharp. /Pt states it is constant. /Pt states she has tired saeid lax and she has vision loss and migraine. ) 12/24/2024 - 12/24/2024 11:59 PM CDT Hospital Encounter [facility] [address] [place] [address] Bethany Macias, DO Discharge Disposition: Home or Self Care (Routine Discharge) 12/24/2024 Results Follow-Up [place] [address] [address] [place] [address] Bethany Macias, DO COMPREHENSIVE METABOLIC PANEL, LIPASE, URINALYSIS, Additional followed-up results: 2 12/24/2024 Telephone [place] [address] [address] [place] [address] Bethany Macias, DO Medication Information 12/24/2024 Travel 12/21/2024 Telephone [place] [address] [address] [place] [address] Bethany Macias, DO Information 12/18/2024 Telephone [place] [address] [address] [place] [address] Bethany Macias, DO Blood Pressure 12/15/2024 Results Follow-Up [place] [address] [address] [place] [address] Bethany Macias, DO MAGNESIUM, VITAMIN B-12, HEPATITIS B SURFACE ANTIBODY, Additional followed-up results: 12 12/14/2024 8:00 AM CDT Office Visit [place] [address] [address] [place] [address] Bethany Macias, DO New Patient (Wants to discuss her intestines) 12/14/2024 - 12/14/2024 11:59 PM CDT Hospital Encounter [facility] [address] [place] [address] Bethany Macias, DO Discharge Disposition: Home or Self Care (Routine Discharge) 12/14/2024 Travel 12/04/2024 12:52 AM CDT - 12/04/2024 3:17 AM CDT Emergency [facility] [place] [address] Lary Wheeler MD Hypertension Discharge Disposition: Home [...] Description 04/01/2025 7:30 AM CDT Hospital Encounter [facility] [address] [place] [address] Anjel Yip MD [address] [place] [address], [address] [place] [address]86[address] 04/01/2025 7:30 AM CDT - 04/01/2025 8:45 AM CDT Surgery [facility] [address] [place] [address] Anjel Yip MD [address] [place] [address], [address] [place] [address] [phone] COLONOSCOPY DIAGNOSTIC WITH/WITHOUT SPECIMEN BRUSH/WASH Scheduled Procedures [...] 06/03/2018 Hepatitis C Completed 12/14/2024 PHQ-2 (Physician [place]) Completed 12/14/2024 Pneumococcal Vaccine: 50+ Years Completed [...] Care Plan Autogenerated Problem No Kimberly Griffiths, health unit clerk Procedure Name Priority Date/Time Associated Diagnosis Comments [...] 11:41 AM CDT) H. PYLORI AG (STOOL) [facility] [place] Comment: HELICOBACTER PYLORI AG, EIA, STOOL Micro Number: [id number] Test Status: Final Specimen Source: Stool Specimen [...] Performing Organization Information: Site ID: SL Name: [facility] Address: [facility] [place] [address] Director: Hammad Yip Bethany Macias DO MICROBIOLOGY - GENERAL ORDERA BLES Final Result [facility] Space Apart - GRICEL ORDERS [address] [address] * (ABNORMAL) URINALYSIS (12/24/2024 12:04 PM CDT) Only the most recent of2 resultswithin the time period is included. COLOR (U) YELLOW 12/24/2024 7:26 PM CDT [facility] TRANSPARENCY CLEAR CLEAR 12/24/2024 7:26 PM CDT [facility] SPECIFIC GRAVITY (U) <1.005 1.003 - 1.040 12/24/2024 7:26 PM CDT [facility] U PH 6.0 5.0 - 9.0 12/24/2024 7:26 PM CDT [facility] PROTEIN RANDOM (U) NEGATIVE NEGATIVE 12/24/2024 7:26 PM CDT [facility] GLUCOSE (U) NEGATIVE NEGATIVE 12/24/2024 7:26 PM CDT [facility] KETONES MG/DL (U) NEGATIVE NEGATIVE 12/24/2024 7:26 PM CDT [facility] BILIRUBIN (U) NEGATIVE NEGATIVE 12/24/2024 7:26 PM CDT [facility] BLOOD (U) NEGATIVE NEGATIVE 12/24/2024 7:26 PM CDT [facility] UROBILINOGEN 0.2 0.0 - 2.0 EU/DL 12/24/2024 7:26 PM CDT [facility] NITRITES NEGATIVE NEGATIVE 12/24/2024 7:26 PM CDT [facility] LEUKOCYTES (U) 1+(A) NEGATIVE 12/24/2024 7:26 PM CDT [facility] RBC/HPF 0-3 0 - 3 /HPF 12/24/2024 7:26 PM CDT [facility] WBC/HPF 4-9(A) 0 - 3 /HPF 12/24/2024 7:26 PM CDT [facility] EPI/HPF 4-9 /HPF 12/24/2024 7:26 PM CDT [facility] BACTERIA (U) 1+(A) NONE SEEN 12/24/2024 7:26 PM CDT [facility] URINE SPECIMEN FROM URETHRA / Unknown 12/24/2024 12:04 PM CDT us Bethany Macias DO URINE ORDERABLES Final Result [facility] [address] [place] [address], * URINE BACTERIA CULTURE (12/24/2024 12:04 PM CDT) SPEC DESCRIPTION URINE VOIDED 12/24/2024 7:29 PM CDT [facility] SPECIAL REQUESTS NO SPECIAL REQUEST 12/24/2024 7:29 PM CDT [facility] CULTURE RESULT FEW CONTAMINANTS 12/17 11:10 AM CDT [facility] URINE SPECIMEN FROM URETHRA / Unknown 12/24/2024 12:04 PM CDT 12/25/2024 5:11 PM CDT us Bethany Macias DO MICROBIOLOGY - GENERAL ORDERA BLES Final Result [facility] [address] [place] [address], [phone] * (ABNORMAL) COMPREHENSIVE METABOLIC PANEL (12/24/2024 12:04 PM CDT) Only the most recent of3 resultswithin the time period is included. SODIUM S/P/B 138 136 - 145 MMOL/L 12/24/2024 7:23 PM CDT -[facility] POTASSIUM S/P/B 4.5 3.5 - 5.1 MMOL/L 12/24/2024 7:23 PM CDT [facility] CHLORIDE S/P/B 102 98 - 107 MMOL/L 12/24/2024 7:23 PM CDT -[facility] CO2 27.5 21 - 32 MMOL/L 12/24/2024 7:23 PM CDT -[facility] GLUCOSE 161(H) 70 - 99 MG/DL 12/24/2024 7:23 PM CDT [facility] BUN 15 7 - 18 MG/DL 12/24/2024 7:23 PM CDT [facility] CREATININE S/P/B 1.00 0.55 - 1.02 MG/DL 12/24/2024 7:23 PM CDT [facility] CALCIUM S/P/B 9.7 8.4 - 10.5 MG/DL 12/24/2024 7:[address] [facility] BILIRUBIN TOTAL S/P/B 0.5 0.2 - 1.0 MG/DL 12/24/2024 7:[address] [facility] ALKALINE PHOSPHATASE S/P/B 87 46 - 118 U/L 12/24/2024 7:23 PM T [facility] AST 19 15 - 37 U/L 12/24/2024 7:23 PM CDT [facility] ALT 28 14 - 59 U/L 12/24/2024 7:[address] [facility] TOTAL PROTEIN S/P/B 7.7 6.4 - 8.2 G/DL 12/24/2024 7:[address] [facility] ALBUMIN S/P/B 4.4 3.4 - 5.0 G/DL 12/24/2024 7:23 [facility] ANION GAP 8.5 5 - 15 MMOL/L 12/24/2024 7:[address] [facility] Comment:REFERENCE RANGE NOT ESTABLISHED OSMOLALITY (CALC) 290 MOSM/KG 025 7:23 PM T [facility] Comment:REFERENCE RANGE NOT ESTABLISHED GFR ESTIMATE 64(L) >90 ML/MIN/1. 73 M2 12/24/2024 7:[address] [facility] GFR NOTES GFR REFERENCE S: 12/24/2024 7:[address] [facility] Comment: THE ESTIMATED GFR IS CALCULATED USING [...] DO LABORATORY Final Result Performing Organization Address City/[facility]/ZIP Co de Phone Number [facility] [address] [place] [phone], [place] [phone] * LIPASE (12/24/2024 12:04 PM CDT) LIPASE 27 16 - 77 UNITS/L 12/24/2024 7:17 PM CDT [facility] Comment:NEW REFERENCE RANGE 12/24/2024 12:0 4 PM CDT Bethany Macias DO LABORATORY Final Result Performing Organization Address [facility] [[email or web address]] Co de Phone Number [address] [address], [place] [phone] * (ABNORMAL) TSH W/REFLEX (12/14/2024 9:34 AM CDT) TSH 4.136(H) 0.358 - 3.740 uIU/ML 12/14/2024 3:21 PM CDT [facility] 12/14/2024 9:34 AM CDT Bethanylucita Macias DO LABORATORY Final Result Performing Organization Address [facility]/ZIP Co de Phone Number [address] [address], [place] [phone] * VITAMIN B-12 (12/14/2024 9:34 AM CDT) VITAMIN B12 S/P/B 394 193 - 986 PG/ML 12/14/2024 3:21 PM CDT [facility] 12/14/2024 9:34 AM CDT Bethany Macias DO LABORATORY Final Result [facility] [address] [place] [address], * (ABNORMAL) ALBUMIN URINE RANDOM W/CREATININE (12/14/2024 9:34 AM CDT) MICROALBUMIN (U) 95.6(H) <20 MG/L 12/15/19 3:37 PM CDT [facility] CREATININE RANDOM (U) 32.5 MG/DL 12/14/2024 3:37 PM CDT [facility] ALBUMIN/CREAT RATIO 294.2(H) <30 MG/G 12/14/2024 3:37 PM CDT [facility] URINE SPECIMEN / Unknown 12/14/2024 9:34 AM CDT Bethany Macias DO URINE ORDERABLES Final Result [facility] [address] [place] [address], * (ABNORMAL) LIPID PANEL (12/14/2024 9:34 AM CDT) CHOLESTEROL 194 <200 MG/DL 12/14/2024 3:21 PM CDT [facility] TRIGLYCERIDES 159(H) <150 MG/DL 12/14/2024 3:21 PM CDT [facility] HDL 43 >40 MG/DL 12/14/2024 3:21 PM CDT [facility] LDL-C 119(H) <100 MG/DL 12/14/2024 3:21 PM CDT [facility] VLDL CALCULATION 32(H) 5 - 28 MG/DL 12/14/2024 3:21 PM CDT [facility] CHOL/HDL RATIO 4.5(H) 0.0 - 4.0 12/14/2024 3:21 PM CDT [facility] LDL/HDL 2.8(H) 0.41 - 2.13 12/14/2024 3:21 PM CDT [facility] NON HDL CHOLESTEROL 151(H) <140 MG/DL 12/14/2024 3:21 PM CDT [facility] 12/14/2024 9:34 AM CDT Bethany Macias DO LABORATORY Final Result Performing Organization Address [facility]/ZIP Co de Phone Number [facility] [address] [place] [address], [place] [phone] * HEPATITIS C ANTIBODY (12/14/2024 9:34 AM CDT) HEPATITIS C AB NON-REACTI VE NON-REACT JOSE 12/14/2024 6:50 PM CDT [facility] Comment: ANTIBODIES TO HCV NOT DETECTED. DOES NOT EXCLUDE THE POSSIBILITY OF EXPOSURE TO HCV. 12/14/2024 9:34 AM CDT Bethany Macias DO LABORATORY Final Result [facility] [address] [place] [address], [place] [phone] * HEPATITIS B SURFACE AG, EIA (12/14/2024 9:34 AM CDT) HEPATITIS B SURFACE AG NON-REACTI VE NON-REACTI VE 12/14/2024 6:50 PM CDT [facility] Comment:HBsAg NOT DETECTED. 12/14/2024 9:34 AM CDT us Bethany Macias DO LABORATORY Final Result Performing Organization Address [facility] [[email or web address]] Co de Phone Number [facility] [address] [place] [address], [place] [phone] * (ABNORMAL) HEPATITIS B SURFACE ANTIBODY (12/14/2024 9:34 AM CDT) HEP B SURFACE AB <3.1(L) >9.9 MIU/ML 12/14/2024 6:50 PM CDT [facility] Comment:INDIVIDUAL IS CONSID ERED NOT IMMUNE TO HBV INFECTION. 12/14/2024 9:34 AM CDT us Bethany Macias DO LABORATORY Final Result Performing Organization Address [facility] de Phone Number [facility] [address] [place] [address], [place] [phone] * HEPATITIS B CORE ANTIBODY (12/14/2024 9:34 AM CDT) HEP B CORE TOTAL AB NON-REACTI VE NON-REACTI VE 12/14/2024 6:50 PM CDT [facility] Comment:IgM and IgG anti HBc not detected. 12/14/2024 9:34 AM CDT Bethany Macias DO LABORATORY Final Result Performing Organization Address [facility] de Phone Number [facility] [address] [place] [address], [place] [phone] * HEPATITIS B CORE AB IGM (12/14/2024 9:34 AM CDT) HEP B CORE IGM NON-REACT JOSE NON-REACT JOSE 12/14/2024 6:50 PM CDT [facility] Comment: IgM ANTI HBc NOT DETECTED. DOES NOT EXCLUDE THE POSSIBILITY OF EXPOSURE TO OR INFECTION WITH HBV. NO RETEST REQUIRED. HIGH DOSES OF BIOTIN MAY INTERFERE WITH THIS TEST RESULT. CORRELATION TO CLINICAL HISTORY AND PRESENTATION RECOMMENDED. 12/14/2024 9:34 AM CDT Bethany M Gilberto PAZ LABORATORY Final Result [facility] [address] [place] [address], [phone] * (ABNORMAL) CBC W/DIFF AUTOMATED (12/14/2024 9:34 AM CDT) Only the most recent of2 resultswithin the time period is included. WBC 9.94 4.00 - 10.80 x10'3/uL 12/14/2024 2:10 PM CDT [facility] RBC 5.19 4.10 - 5.40 x10'6/uL 12/14/2024 2:10 PM CDT [facility] HGB 16.6(H) 12.0 - 16.0 G/DL 12/14/2024 2:10 PM CDT [facility] HCT 49.8(H) 36.0 - 47.0 % 12/14/2024 2:10 PM CDT [facility] MCV 96.0 78.0 - 100.0 FL 12/14/2024 2:10 PM CDT [facility] MCH 32.0(H) 27.0 - 31.0 PG 12/14/2024 2:10 PM CDT [facility] MCHC 33.3 33.0 - 36.0 G/DL 12/14/2024 2:10 PM CDT [facility] RDW 12.4 11.5 - 14.5 % 12/14/2024 2:10 PM CDT [facility] PLT 323 150 - 350 x10'3/uL 12/14/2024 2:10 PM CDT [facility] MPV 9.7 7.4 - 10.4 FL 12/14/2024 2:10 PM CDT [facility] DIFFERENTIAL TYPE AUTOMATED DIFFERENTIAL 12/14/2024 2:10 PM CDT [facility] NEUTROPHILS % 64.4 % 12/14/2024 2:10 PM CDT [facility] LYMPHOCYTES % 26.0 % 12/14/2024 2:10 PM CDT [facility] MONOCYTES % 7.1 % 12/14/2024 2:10 PM CDT [facility] EOSINOPHILS % 1.6 % 12/14/2024 2:10 PM CDT [facility] BASOPHILS % 0.6 % 12/14/2024 2:10 PM CDT [facility] IMMATURE GRANS % 0.3 % 12/14/2024 2:10 PM CDT [facility] ABS. NEUTROPHILS 6.40 1.60 - 8.30 x10'3/uL 12/14/2024 2:10 PM CDT [facility] ABS. LYMPHOCYTES 2.58 0.80 - 4.70 x10'3/uL 12/14/2024 2:10 PM CDT [facility] ABS. MONOCYTES 0.71 0.00 - 1.50 x10'3/uL 12/14/2024 2:10 PM CDT [facility] ABS. EOSINOPHILS 0.16 0.00 - 0.40 x10'3/uL 12/14/2024 2:10 PM CDT [facility] ABS. BASOPHILS 0.06 0.00 - 0.20 x10'3/uL 12/14/2024 2:10 PM CDT [facility] ABS. IMMATURE GRANULOCYTES 0.03 0.00 - 0.03 x10'3/uL 12/14/2024 2:10 PM CDT [facility] 12/14/2024 9:34 AM CDT Bethanylucita Macias LABORATORY Final Result Performing Organization Address [facility]/ZIP Co de Phone Number [facility] [address] [place] [phone], * THYROXINE, FREE (FT4) (12/14/2024 9:34 AM CDT) FREE T4 1.20 0.76 - 1.46 NG/DL 12/14/2024 3:55 PM CDT [facility] 12/14/2024 9:34 AM CDT Bethany Fela Macias DO LABORATORY Final Result Performing Organization Address [facility] [[email or web address]] Co de Phone Number [address] [address], [place] [phone] * (ABNORMAL) VITAMIN D, 25 [place] (12/14/2024 9:34 AM CDT) Pathologist [facility] VITAMIN D 25 HYDROXY TOTAL S/P/B 7.0(L) 30 - 100 NG/ML 12/14/2024 3:21 PM CDT [facility] Comment: DEFICIENT <20 INSUFFICIENT 20-30 SUFFICIENT 30-100 12/14/2024 9:34 AM CDT Bethany Macias LABORATORY Final Result Performing Organization Address City/[facility] [[email or web address]] Co de Phone Number [address] [phone], * MAGNESIUM (12/14/2024 9:34 AM CDT) MAGNESIUM 1.9 1.8 - 2.4 MG/DL 12/14/2024 3:21 PM CDT [facility] 12/14/2024 9:34 AM CDT Bethany Macias DO LABORATORY Final Result [facility] [address] [facility] [place] [address], * HEMOGLOBIN, GLYCOSYLATED (12/14/2024) HGB A1C 6.6 % [id number], [place] 12/14/2024 Bethany Macias LABORATORY Final Result Performing Organization Address City/[facility]/ZIP Co de Phone Number [id number] [place] [address] [place] [address], * (ABNORMAL) URINALYSIS, AUTO, COMPLETE (12/04/2024 2:40 AM CDT) SPECIMEN TYPE URINE CLEAN CATCH 12/04/2024 2:32 AM CDT [facility] COLOR (U) COLORLESS 12/04/2024 3:07 AM CDT [facility] TRANSPARENCY CLEAR 12/04/2024 3:07 AM CDT [facility] SPECIFIC GRAVITY (U) 1.010 1.001 - 1.030 12/04/2024 3:07 AM CDT [facility] U PH 5.0 5.0 - 9.0 12/04/2024 3:07 AM CDT [facility] LEUKOCYTES (U) 75(A) NEGATIVE 12/04/2024 3:07 AM CDT [facility] NITRITES NEGATIVE NEGATIVE 12/04/2024 3:07 AM CDT [facility] PROTEIN RANDOM (U) NEGATIVE <30 MG/DL 12/04/2024 3:07 AM CDT [facility] GLUCOSE (U) NORMAL NORMAL MG/DL 12/04/2024 3:07 AM CDT [facility] KETONES MG/DL (U) NEGATIVE NEGATIVE MG/DL 12/04/2024 3:07 AM CDT [facility] UROBILINOGEN NORMAL NORMAL MG/DL 12/04/2024 3:07 AM CDT [facility] BILIRUBIN (U) NEGATIVE NEGATIVE MG/DL 12/04/2024 3:07 AM CDT [facility] BLOOD (U) NEGATIVE NEGATIVE 12/04/2024 3:07 AM CDT [facility] MUCUS RARE /LPF 12/04/2024 3:07 AM CDT [facility] WBC/HPF 5 <6 /HPF 12/04/2024 3:07 AM CDT [facility] RBC/HPF 2 <6 /HPF 12/04/2024 3:07 AM CDT [facility] BACTERIA (U) RARE(A) NONE /HPF 12/04/2024 3:07 AM CDT [facility] SQUAMOUS EPITHELIALS RARE /HPF 12/04/2024 3:07 AM CDT [facility] URINE SPECIMEN OBTAINED BY CLEAN CATCH PROCEDURE / Unknown 12/04/2024 2:40 AM CDT us Sherry HAAS URINE ORDERABLES Final Res ult [facility] [address] [place] [address], [place] [phone] * XR CHEST PORTABLE (12/04/2024 1:30 AM CDT) Anatomical Region Laterality Modality Chest Radiographic Yamile ging 12/04/2024 1:34 AM CDT Impressions 12/04/2024 1:36 AM CDT IMPRESSION: Minimal right basilar opacity that could be due to minimal atelectasis, trace pleural effusion, and/or pneumonia. Referred By: Interpreted By: Miller García DO, 12/04/2024 1:34 AM Narrative 12/04/2024 1:36 AM CDT [facility] [address] [place], [place] [address] Examination: XR CHEST PORTABLE Exam time: 12/04/2024 [...] Procedure Note Miller García DO - 12/04/2024 [facility] [address] [place], [place] [address] Examination: XR CHEST PORTABLE Exam time: 12/04/2024 [...] AM CDT) 12/04/2024 1:[address] [facility] RAD - 12/04/2024 3:55 PM CDT [facility] Test Date: 2024-12-04 Pat Name: ELLIEMARINA MCMAHONES Department: 41 Room: EXAM21 Gender: Female Fashion Patternmaker: : 1965 Requested By: SHERRY MAYES Order Number: [id number] Reading MD: Kita Acosta Measurements Intervals [place] Rate: 95 P: 61 SD: 142 QRS: -26 QRSD: 93 T: 36 QT: 337 QTc: 424 Interpretive Statements SINUS RHYTHM BORDERLINE LEFT AXIS DEVIATION [QRS AXIS < -20] No previous ECG available for comparison Procedure Note Kita Acosta MD - 12/04/[address] [facility] Test Date: 2024-12-04 Pat Name: ELLIEMARINA MCMAHONES Department: 41 Room: EXAM21 Gender: Female Fashion Patternmaker: : 1965 Requested By: SHERRY MAYES Order Number: [id number] Reading RAYMOND Acosta Measurements Intervals [place] Rate: 95 P: 61 SD: 142 QRS: -26 QRSD: 93 T: 36 QT: 337 QTc: 424 Interpretive Statements SINUS RHYTHM BORDERLINE LEFT AXIS DEVIATION [QRS AXIS < -20] No previous ECG available for comparison us Sherry HAAS ECG ORDERABLES Final Resu lt [facility] RAD from Last 3 Months Additional Health Concerns Active Problems Noted Date Diagnosed Date Autogenerated Problem 01/19/2025 Insurance [employer] Care Teams Cnc Maintenance Mechanic Relationship Specialty Start Date End Date Velvet Tesfaye NP [address] [place] [address] PCP - General FAMILY PRACTICE 01/19/25 04/11/25
[2025-02-17 22:51] VITALS: BMI 35.6
--- NOTE | 2025-02-17 22:52 | P.HP_ITS ---
H&P: HPI History of Present Illness Date/Time: 02/17/25 22:52 Chief Complaint: Dyspnea Narrative: This is a very pleasant 59-year-old female patient with past medical history of hypertension, diabetes mellitus chronic kidney disease who comes to the emergency room with complaints of having 2 and half days and nasal sinus drainage along with a productive cough. Patient states that today her symptoms became worse and it became difficult for her to speak or catch her breath so she presented to the emergency room for evaluation. Upon arrival to the emergency room patient was noted to be in respiratory distress, hypoxic in the 80s and tripoding, requiring a new oxygen requirement of 2L supplemental oxygen. She is a 30-40 year pack smoker, denies any formal diagnosis of COPD, however states she does use inhalers at home. She does not wear any oxygen at home. She also reports that in July 2024 she was diagnosed with pneumonia and the azithromycin did not agree with her so it took a medication clarithromycin to clear it up. She does not use any ETOH or illicit substances. In the ER workup was started and showed Normal CBC and CMP and Mag. VSS with exception of hypoxia initially, but it recovered to 99% with 2L of oxygen. Viral panel was obtained and is pending. CXR was performed and shows RLL PNA. Blood cultures x2 pending, and Biaxin and Rocephin were initiated. She was started on oxygen and given a Duoneb w/Rocephin and Biaxin. She is being admitted in the current setting for continued assessment, management and monitoring. Review of Systems Review of Systems: All systems reviewed & are unremarkable except as noted in HPI and below PMFSH Past Medical History Medical History Herpetic marika BMI 36.0-36.9,adult Kidney disease Hypertension Hepatitis Acid reflux Diabetes Allergies Surgical History Surgical History History of partial hysterectomy ovaries spared Family History Family History Mother Diabetes mellitus Cancer covid-19 CKD (chronic kidney disease) Father Cancer Hypertension Immobile, syndrome paraplegic Sibling No problems noted. Social History Social History Smoking status: Current every day smoker Tobacco type: cigarettes Second hand tobacco smoke exposure: No Alcohol intake: former Substance use: never Substance use type: does not use Do You Feel Safe in your Home?: Yes Lack of Transportation: No Current Housing: I Have Housing Concerned About Future Housing: Decline to Answer Difficulty Paying Gas/Electric Bills: Decline to Answer Difficulty Paying for Meds: Decline to Answer Currently Unemployed: Decline to Answer Education: High School Diploma/GED Difficulty w/ Childcare or Family Care: No Living arrangements: with family Occupation/Education: unemployed Additional occupation/education comments: [employer] Gender identity (if verbalized by the patient): Female Meds Home Medications and Allergies Home Medications ?Medication ?Instructions ?Recorded ?Confirmed ?Type blood sugar diagnostic (OneTouch #100 ea 01/05/25 02/17/25 Rx Ultra Test strips) blood-glucose meter (OneTouch #1 ea 01/05/25 02/17/25 Rx Ultra2 Meter) bupropion HCl (smoking deter) 150 150 mg PO BID #60 tabs 01/05/25 02/17/25 Rx mg tablet,12 hr sustained-release(smoking deterrent) cholecalciferol (vitamin D3) 25 25 mcg PO DAILY 01/05/25 02/17/25 History mcg (1,000 unit) capsule docusate sodium 100 mg capsule 100 mg PO BID 01/05/25 02/17/25 History (Colace) lancets 28 gauge (Comfort EZ #100 ea 01/05/25 02/17/25 Rx Lancets) gabapentin 100 mg capsule 100 mg PO TID PRN nerve pain #90 01/12/25 02/17/25 Rx caps olmesartan 20 mg tablet 20 mg PO .two times daily #180 tabs 01/12/25 02/17/25 Rx Allergies Allergy/AdvReac Type Severity Reaction Status Date / Time amoxicillin Allergy Swelling Verified 02/17/25 21:20 ciprofloxacin (From Cipro) Allergy Swelling Verified 02/17/25 21:20 clavulanic acid (From Allergy Rash Verified 02/17/25 21:20 Augmentin) naproxen Allergy Swelling Verified 02/17/25 21:20 Penicillins Allergy Swelling Verified 02/17/25 21:20 Sulfa (Sulfonamide Allergy Swelling Verified 02/17/25 21:20 Antibiotics) metformin AdvReac Intermediate Abdominal Verified 02/17/25 21:20 Pain arithromycin Allergy rash Uncoded 02/17/25 21:20 Vital Signs Vital Signs - 24 hr 02/17/25 20:30 02/17/25 20:39 02/17/25 21:17 Temperature 97.9 F Pulse Rate 97 94 Respiratory Rate 27 H 24 H Blood Pressure 153/85 H Pulse Oximetry 99 98 Oxygen Delivery Nasal Cannula Nasal Cannula Oxygen Flow Rate 2 2 02/17/25 21:19 02/17/25 21:49 Temperature Pulse Rate 103 H 108 H Respiratory Rate 23 H Blood Pressure Pulse Oximetry Oxygen Delivery Oxygen Flow Rate Exam Const: General: comfortable and no acute distress Other: Pt sitting up in stretcher in no acute distress. HENMT: Face/Nose/Sinus: Normal nares present and no epistaxis Mouth: Yes moist mucous membranes, No dry mucous membranes and No Abnormal oral and palatal mucosa present Eyes: General: appearance normal, both eyes and all related structures Sclera: sclerae normal Pupils: Equal, round and reactive pupils present EOM: EOMs intact bilaterally Neck: Neck: supple and no JVD Lymphatic: lymphadenopathy not noted Resp: Effort & Inspection: normal respiratory effort Auscultation: rhonchi, wheezes and diminished lung sounds Cardio: Rate: regular rate Rhythm: regular rhythm Heart sounds: no gallops, no murmurs and no rubs GI: Inspection: non-distended GI Palp: Yes Soft to palpation and No Tenderness to palpation present (GI) Auscultation: normal bowel sounds Skin: General skin exam: normal color and no rashes or lesions noted Lesions: no lesions noted Rashes: no rashes noted Wounds: no wounds Neuro: General: gait normal Speech: normal speech Motor exam (neuro): 5/5 motor strength present throughout and Normal motor muscle tone present throughout Sensory Exam: normal sensation Extrem: General: normal to inspection, no edema and no pedal edema Psych: Mental Status: mental status grossly normal Affect: normal affect H&P: Results Labs Labs: Short CBC 02/17/25 Range/Units 20:25 WBC 10.0 (4.5-10.0) K/mm3 Hgb 16.2 H (12.0-15.0) g/dL Hct 48.6 H (37.0-47.0) % Plt Count 235 (150-375) k/mm3 BMP 02/17/25 20:25 Sodium 135 L Potassium 4.8 Chloride 101 Carbon Dioxide 24 BUN 16 Creatinine 1.09 H Glucose 190 H Calcium 9.1 Liver Function 02/17/25 Range/Units 20:25 Total Bilirubin 0.7 (0.2-1.3) mg/dL AST 29 (14-36) U/L ALT 18 (6-35) U/L Alkaline Phosphatase 77 (38-126) U/L Albumin 4.7 (3.5-5.1) g/dL Assessment and Plan Assessment and plan (1) Acute pneumonia: Code(s): J18.9 - Pneumonia, unspecified organism Status: Acute Assessment and Plan: * As evidenced by CXR as independently viewed by myself, RLL infiltrate present. * Continue Rocephin and Biaxin, as pt will not take Azithromycin, but will take Biaxin. * Supportive treatment with supplemental oxygen, wean as tolerated. * Duoneb Q6 hrs * Albuterol Q4 hrs prn dyspnea/wheezing. * Trend daily labs and VS. * If acute worsening, consider Pulmonology consult. * Check for Mycoplasma PNA, Legionella and Strep Pneumo. (2) Acute hypoxemic respiratory failure: Code(s): J96.01 - Acute respiratory failure with hypoxia Status: Acute Assessment and Plan: * See #1 above. * Respiratory pathogen panel pending. * Viral respiratory panel pending. (3) Tobacco dependence due to cigarettes: Code(s): F17.210 - Nicotine dependence, cigarettes, uncomplicated Status: Chronic Assessment and Plan: * Pt refuses patch, saying she is allergic to it. (4) Diabetes: Qualifiers: Diabetes mellitus type: type 2 Diabetes mellitus detention insulin use: without superintendent [employer] use Diabetes mellitus complication status: without complication Qualified Code(s): E11.9 - Type 2 diabetes mellitus without complications Code(s): E11.9 - Type 2 diabetes mellitus without complications Status: Chronic Assessment and Plan: * No current tx. * Will assess A1C. * No oral hypoglycemics. * Hypoglycemic protocol * SSI low dose with meals and HS * Glucose checks AC/HS and as needed. * Diabetic diet (5) Hypertension: Code(s): I10 - Essential (primary) hypertension Status: Chronic Assessment and Plan: * Continue home meds once they are verified and confirmed. * Monitor BP trends. Quality VTE Prophylaxis VTE prophylaxis: mechanical ordered Hospitalist MIPS Advance Care Plan I have confirmed that the patient's Advanced Care Plan is present, code status is documented, or surrogate decision maker is listed in patient medical record.: Yes Medication Reconciliation I have utilized all available resources to obtain, update and review the patients current medications (includes all prescriptions, OTC, herbals, cannabis, and nutritional supplements).: Yes
[2025-02-17] MEDS: OLMESARTAN MEDOXOMIL 20 MG TABLET PO (23:26)
[2025-02-17 23:36] VITALS: BP 102/61; PULSE 96; RESP 32; TEMP 37.1; O2SAT 93
--- NOTE | 2025-02-17 23:37 | ADMGEN ---
This patient, Ellei Marks, was admitted to [facility] Room 324-02. Patient/family oriented to hospital policies and general routines including ID bracelet, bed and alarms, visiting hours, pain management, procedures, bathroom and other care routines, personal items, smoking policy, room service/diet, and visiting hours. Information on how to activate the Rapid Response Team has been discussed. Patient/Family are encouraged to report perceived risks to care and to ask questions if they do not understand what they are told or what they should do.
[2025-02-17 23:50] LABS: Hemoglobin A1C 6.4 % (<5.7)
[2025-02-18] VITALS (19 sets, daily range): BP systolic 124–140; BP diastolic 64–69; PULSE 73–98; RESP 18–32; TEMP 36.3–37.1; O2SAT 92–95
--- NOTE | 2025-02-18 | ECHO_ITS ---
Patient Info Name: Ellie Marks Age: 59 years : 1965 Gender: Female Ht: 66 in Wt: 220 lbs BSA: 2.20 m2 HR: 79 bpm BP: 131 / 64 mmHg Technical Quality: Good Exam Date: 02/18/2025 4:17 PM Patient Status: I Admit Date: 02/17/2025 Exam Type: CA echo doppler w bubble study Complete two-dimensional, color flow and Doppler transthoracic echocardiogram is performed with agitated saline. Staff Referring Physician: Cristopher Lopez Flash Drier Operator: Cait Leigh Attending Provider: Porter Jenkins MD Contrast/Agitated Saline Contrast/Ag. Saline: Agitated Saline Amount: 10.00 ml Existing IV Access: Yes IV Access Condition: patent with no signs of infiltration Summary 1. Left ventricular chamber dimension is normal. 2. Left ventricular systolic function is normal, estimated at 65-70. 3. The left ventricular diastolic function is grade I diastolic dysfunction. 4. E/e' 6 is not elevated. 5. Left atrial chamber dimension is mildly enlarged. 6. Agitated saline injection with and without valsalva maneuver opacified right side cardiac chambers with several bubbles shunting to left side cardiac chambers suggestive of patent foramen ovale. 7. There is trace tricuspid valve regurgitation. 8. Mild pulmonary hypertension, estimated pulmonary arterial systolic pressure is 44 mmHg. 9. Dilated inferior vena cava with >50% collapse upon inspiration consistent with elevated right atrial pressure, 10 mmHg. Left Ventricle E/e' 6 is not elevated. Left ventricular chamber dimension is normal. Left ventricular systolic function is normal, estimated at 65-70. The left ventricular diastolic function is grade I diastolic dysfunction. Right Ventricle Right ventricular chamber dimension is normal. Right ventricular systolic function is normal. and with normal TAPSE 2.2 cm. Left Atria Left atrial chamber dimension is mildly enlarged. Right Atria Right atrial chamber dimension is normal. Atrial Septum Interatrial septum not well visualized by 2D and agitated saline imaging. Agitated saline injection with and without valsalva maneuver opacified right side cardiac chambers with several bubbles shunting to left side cardiac chambers suggestive of patent foramen ovale. Aortic Valve The aortic valve is trileaflet. There is no aortic valve stenosis. There is no aortic valve regurgitation. Pulmonic Valve There is no pulmonic regurgitation. Mitral Valve There is no mitral valve stenosis. There is no mitral valve regurgitation. Tricuspid Valve There is trace tricuspid valve regurgitation. Mild pulmonary hypertension, estimated pulmonary arterial systolic pressure is 44 mmHg. Pericardium/Pleural There is no pericardial effusion. Inferior Vena Cava Dilated inferior vena cava with >50% collapse upon inspiration consistent with elevated right atrial pressure, 10 mmHg. Aorta The aortic root size at the sinus of Valsalva is normal. Left Ventricular Outflow Tract Name Value Normal LVOT 2D LVOT Diameter 2.0 cm LVOT Doppler LVOT Peak Velocity 151 cm/s LVOT Peak Gradient 9 mmHg LVOT Mean Gradient 4 mmHg LVOT VTI 34 cm LVOT VTI/AV VTI Ratio 0.8 LVOT Stroke Volume 105 ml LVOT CO 9.1 l/min LVOT CI 4.1 l/min/m2 Pulmonic Valve Name Value Normal RVOT Doppler RVOT Peak Velocity 73 cm/s RVOT Peak Gradient 2 mmHg PV Doppler PV Peak Velocity 117 cm/s PV Peak Gradient 5 mmHg Mitral Valve Name Value Normal MV Doppler MV Peak Gradient 4 mmHg MV Mean Gradient 2 mmHg MV Area (Cont Eq VTI) 2.9 cm2 MV Diastolic Function MV E Peak Velocity 82 cm/s MV A Peak Velocity 107 cm/s MV E/A 0.8 MV Decel Time (PW) 219 ms MV Annular TDI MV E/e' (Septal) 6.9 MV E/e' (Lateral) 6.2 MV E/e' (Average) 6.5 Tricuspid Valve Name Value Normal TV Regurgitation Doppler TR Peak Velocity 293 cm/s TR Peak Gradient 22 mmHg Estimated PAP/RSVP RA Pressure 10 mmHg <=5 PA Systolic Pressure 44 mmHg <36 RV Systolic Pressure 44 mmHg <36 Aortic Valve Name Value Normal AV Doppler AV Peak Velocity 183 cm/s AV Peak Gradient 13 mmHg AV Mean Gradient 7 mmHg AV VTI 40 cm AV Area (Cont Eq VTI) 2.6 cm2 >=3.0 AV Area (Cont Eq Juan) 2.6 cm2 AV DI (Juan) 0.82 AV Regurgitation 2D LVOT Area 3.1 cm2 Ventricles Name Value Normal LV Dimensions 2D/MM IVS Diastolic Thickness (2D) 1.0 cm 0.6-1.0 LVID Diastole (2D) 4.9 cm 3.8-5.2 LVIW Diastolic Thickness (2D) 1.1 cm 0.6-0.9 LVID Systole (2D) 2.5 cm 2.2-3.5 LVOT Diameter 2.0 cm LV Mass (2D Cubed) 186.17 g 67.00-162.00 LV Mass Index (2D Cubed) 85 g/m2 43-95 Relative Wall Thickness (2D) 0.45 <=0.42 LV Fractional Shortening/Ejection Fraction 2D/MM LV Fractional Shortening (2D) 49 % 27-45 LV EF (2D Teichholz) 80 % LV Diastolic Volume (4C MOD) 100 ml LV EF (4C MOD) 53 % LV Diastolic Volume (2C MOD) 100 ml LV EF (2C MOD) 59 % LV Diastolic Volume (BP MOD) 100 ml 46-106 LV Diastolic Volume Index (BP MOD) 45 ml/m2 29-61 LV Systolic Volume (BP MOD) 44 ml 14-42 LV Systolic Volume Index (BP MOD) 20 ml/m2 8-24 LV EF (BP MOD) 56 % 54-74 LV Diastolic Length (4C) 7.8 cm LV Systolic Length (4C) 6.9 cm LV Stroke Volume (4C MOD) 53 ml Atria Name Value Normal LA Dimensions LA Volume (4C A-L) 46 ml LA Volume (BP A-L) 43 ml RA Dimensions RA Systolic Major Underwood Length (4C) 5.2 cm 2.2-2.8 RA Area (4C) 13.1 cm2 <=18.0 Report Signatures
[2025-02-18] MEDS: IPRATROPIUM 0.5 MG/ALBUTEROL SULFATE 2.5 MG AMPUL.NEB 3 ML INHALATION ×4 (02:49→20:50)
[2025-02-18] MEDS: ACETAMINOPHEN 325 MG TABLET 650 MG PO ×3 (06:27→22:57)
[2025-02-18 06:59] LABS: Hematocrit 46.8 % (37.0-47.0); Hemoglobin 15.2 g/dL (12.0-15.0); Immature Granulocyte Percent A 0.4 % (0-0.5); Lymphocytes Absolute Auto 1.52 K/mm3 (0.9-3.2); Mean Corpuscular HGB Conc 32.5 g/dl (32-36); Mean Corpuscular Hemoglobin 31.9 pg (26-34); Mean Corpuscular Volume 98.1 fl (80-100); Nucleated Red Blood Cells Absolute Auto 0.000 K/mm3 (0.0-0.012); Nucleated Red Blood Cells Perc 0.0 % (0.0-0.2); Platelet Count Result 248 k/mm3 (150-375); Red Blood Count 4.77 M/mm3 (4.2-5.4); White Blood Count 10.8 K/mm3 (4.5-10.0)
[2025-02-18 07:09] LABS: Alanine Aminotransferase 19 U/L (6-35); Albumin Level 4.5 g/dL (3.5-5.1); Alkaline Phosphatase 70 U/L (38-126); Anion Gap 10 mmol/L (4-12); Aspartate Amino Transferase 26 U/L (14-36); Bilirubin,Total 0.4 mg/dL (0.2-1.3); Blood Urea Nitrogen 14 mg/dL (7-17); Calcium 9.0 mg/dL (8.4-10.2); Carbon Dioxide 28 mmol/L (22-30); Chloride 100 mmol/L (98-107); Estimated CRCL calculation 60 ml/min; Estimated Glomerular Filt Rate 53; Glucose 119 mg/dL (65-110); Magnesium 2.5 mg/dL (1.6-2.3); Potassium 4.8 mmol/L (3.4-5.0); Sodium 138 mmol/L (137-145); Total Protein 8.1 g/dL (6.3-8.2)
[2025-02-18 07:49] LABS: NT Pro B Type Natriuretic Pept 88 pg/mL (19.9-100)
[2025-02-18] MEDS: CHOLECALCIFEROL (VITAMIN D3) 25 MCG (1,000 UNITS) TABLET PO (08:48)
[2025-02-18] MEDS: OLMESARTAN MEDOXOMIL 20 MG TABLET PO ×2 (08:48→21:36)
[2025-02-18] MEDS: DOCUSATE SODIUM 100 MG CAPSULE PO ×2 (08:48→17:41)
[2025-02-18] MEDS: SALINE 0.65% NAS SOLN 44 ML BTL 1 SPRAY NASAL (13:08)
--- NOTE | 2025-02-18 15:57 | PM.IMPN ---
Progress Note: A&P Assessment and Plan (1) Acute pneumonia: Code(s): J18.9 - Pneumonia, unspecified organism Status: Acute Assessment and Plan: Patient presents with cough and shortness of breath. Chest x-ray shows cardiomegaly with congestive dunia and interstitial thickening suggestive pulmonary edema. Pneumonitis not excluded. Also with right basilar airspace disease Blood cultures not collected. Started on Rocephin and clarithromycin. Mycoplasma PNA, Legionella and Strep Pneumo pending Respiratory viral panel pending. Check MRSA. Change clarithromycin to doxycycline. Check sputum (2) Acute hypoxemic respiratory failure: Code(s): J96.01 - Acute respiratory failure with hypoxia Status: Acute Assessment and Plan: Patient with acute hypoxic respiratory failure. Chest x-ray as above. Imaging reviewed independently showing right basilar airspace disease and congestive dunia No ABG performed. BNP 88. [place] to be bacterial and/or viral related. Check ABG. Wean oxygen as tolerated. Add steroids. Check echocardiogram given that she has cardiomegaly (3) Tobacco dependence due to cigarettes: Code(s): F17.210 - Nicotine dependence, cigarettes, uncomplicated Status: Chronic Assessment and Plan: Pt refuses patch, saying she is allergic to it. Patient was educated about the benefits of smoking cessation. (4) Diabetes: Qualifiers: Diabetes mellitus complication status: without complication Diabetes mellitus group home insulin use: without group home use Diabetes mellitus type: type 2 Qualified Code(s): E11.9 - Type 2 diabetes mellitus without complications Code(s): E11.9 - Type 2 diabetes mellitus without complications Status: Chronic Assessment and Plan: A1c 6.4. The patient's blood glucose was reviewed on 02/18 Glucose remains well controlled. Continue AccuCheks covering with sliding scale. Hypoglycemia protocol available as needed. Continue to monitor Diabetic diet (5) Hypertension: Code(s): I10 - Essential (primary) hypertension Status: Chronic Assessment and Plan: Patient's blood pressure was reviewed on 02/18 Blood pressure remains well controlled. Will continue to monitor Plan DVT Prophylaxis - SCDs Code status - Full Subjective Date/time seen: 02/18/25 15:57 Interval history: 59yo female patient with HTN, DM, CKD who comes to the emergency room with complaints of nasal sinus drainage and a productive cough. Assuming care. Chart reviewed. Patient having postural dyspnea. Her shortness of breath is better when she sits up. Overall her shortness of breath is better since admission. She does have dyspnea on exertion when walking to bathroom. No chest pain. Cough is nonproductive. She has no history of asthma, emphysema or sleep apnea. She does not wear oxygen at home. No history of CHF. No complaints of pedal edema. She mentions that her checks her oxygen level while she sleeps and that he has noted that her SpO2 has dropped to 89% at times. She does have albuterol inhaler at home that she uses as needed and has only needed this 3-4 times over the past 6 months. Exam Narrative: AF 97.4 131/64 77 22 95% 2L Gen - NARD but becomes dyspneic with minimal exertion Chest -diffuse expiratory wheezes. CV - RRR S1/S2. JVP is not elevated. No murmurs. Telemetry showing no significant dysrhythmias Abd - Soft, NT/ND, Positive BS Ext - No pedal edema. Negative Homans sign Neuro - Alert and oriented. Nonfocal exam. Psych - Nml mood and affect Skin - Warm and dry Objective Data Vital Signs Vital Signs: Vital Signs - 24 hr 02/17/25 20:30 02/17/25 20:39 02/17/25 21:17 Temperature 97.9 F Pulse Rate 97 94 Respiratory Rate 27 H 24 H Blood Pressure 153/85 H Pulse Oximetry 99 98 Oxygen Delivery Nasal Cannula Nasal Cannula Oxygen Flow Rate 2 2 02/17/25 21:19 02/17/25 21:49 02/17/25 23:36 Temperature 98.7 F Pulse Rate 103 H 108 H 96 Respiratory Rate 23 H 32 H Blood Pressure 102/61 Pulse Oximetry 93 Oxygen Delivery Oxygen Flow Rate 02/18/25 00:00 02/18/25 00:05 02/18/25 02:53 Temperature Pulse Rate 95 96 Respiratory Rate 32 H Blood Pressure Pulse Oximetry 93 94 Oxygen Delivery Nasal Cannula Nasal Cannula Oxygen Flow Rate 2 3 02/18/25 02:53 02/18/25 04:00 02/18/25 06:00 Temperature 98.7 F Pulse Rate 82 85 74 Respiratory Rate 22 H 28 H Blood Pressure 124/69 Pulse Oximetry 95 Oxygen Delivery Oxygen Flow Rate 02/18/25 08:04 02/18/25 08:04 02/18/25 08:12 Temperature Pulse Rate 98 88 Respiratory Rate 22 H 22 H Blood Pressure Pulse Oximetry 92 Oxygen Delivery Nasal Cannula Oxygen Flow Rate 2 02/18/25 08:15 02/18/25 08:22 02/18/25 12:01 Temperature Pulse Rate 92 83 Respiratory Rate 22 H Blood Pressure Pulse Oximetry 92 Oxygen Delivery Nasal Cannula Oxygen Flow Rate 2 02/18/25 14:00 02/18/25 14:21 02/18/25 14:29 Temperature 97.4 F L Pulse Rate 81 86 77 Respiratory Rate 18 22 H 22 H Blood Pressure 131/64 Pulse Oximetry 95 Oxygen Delivery Oxygen Flow Rate Intake/Output Intake/Output: Intake & Output 02/15/25 02/16/25 02/17/25 02/18/25 23:59 23:59 23:59 23:59 Intake Total 1100 930 Output Total 200 Balance 1100 730 Meds/Results Medications: Active Medications Generic Name Dose Route Start Last Admin Trade Name Freq PRN Reason Stop Dose Admin Acetaminophen 650 mg 02/17/25 21:34 02/18/25 13:08 Acetaminophen 325 Mg Tablet PO 650 mg Q4H PRN Administration Mild Pain (1-3) or Fever Albuterol 2.5 mg 02/17/25 23:22 Albuterol Sulfate Neb 2.5 Mg/3 Ml Inh INHALATION Q4HRT PRN Shortness Of Breath Albuterol/Ipratropium 3 ml 02/18/25 02:00 02/18/25 14:21 Ipratropium 0.5 Mg/Albuterol Sulfate 2.5 Mg Ampul.Neb 3 Ml INHALATION 3 ml Q6HRT SHAYLA Administration Clarithromycin 1,000 mg 02/18/25 22:00 Clarithromycin 500 Mg Tab.Sr.24h PO Q24H SHAYLA Dextrose 12.5 gm 02/17/25 23:22 Dextrose 50% 25 Gm/50 Ml Syringe IV PUSH PRN PRN Hypoglycemia Protocol Docusate Sodium 100 mg 02/18/25 09:00 02/18/25 08:48 Docusate Sodium 100 Mg Capsule PO 100 mg BID SHAYLA Administration Gabapentin 100 mg 02/17/25 23:02 Gabapentin 100 Mg Capsule PO TID PRN nerve pain Glucagon 1 mg 02/17/25 23:22 Glucagon For Inj 1 Mg Vial IM PRN PRN Hypoglycemia Protocol Glucose 15 gm 02/17/25 23:22 Glucose Oral Gel 15 Gm Of Glucse In 37.5 Gm Tube PO PRN PRN Hypoglycemia Protocol Ceftriaxone Sodium 1 gm in 50 mls @ 100 mls/hr 02/18/25 22:00 Rocephin 1 Gm/Ns 50 Ml IVPB Q24H SHAYLA Dextrose 1,000 mls @ 100 mls/hr 02/17/25 23:22 Dextrose 5% 1,000 Ml IVPB PRN PRN Hypoglycemia Protocol Insulin Aspart 2 - 5 units 02/18/25 08:00 02/18/25 12:07 Insulin Aspart (*Bkc) 100 Units/Ml SUB-Q Not Given TIDWM SHAYLA Protocol Insulin Aspart 1 - 2 units 02/18/25 21:00 Insulin Aspart (*Bkc) 100 Units/Ml SUB-Q HS SHAYLA Protocol Olmesartan 20 mg 02/17/25 23:05 02/18/25 08:48 Olmesartan Medoxomil 20 Mg Tablet PO 20 mg Q12HR SHAYLA Administration Sodium Chloride 1 spray 02/18/25 12:04 02/18/25 13:08 Saline 0.65% Antonio Soln 44 Ml Btl NASAL 1 spray Q6HR PRN Administration Congestion Vitamin D 25 mcg 02/18/25 09:00 02/18/25 08:48 Cholecalciferol (Vitamin D3) 25 Mcg (1,000 Units) Tablet PO 25 mcg DAILY SHAYLA Administration Radiology Results: ITS Impressions Chest X-Ray 02/17/25 21:05 IMPRESSION: Cardiomegaly with congestive dunia and interstitial thickening suggestive of pulmonary edema. Pneumonitis is not excluded. Right basilar atelectasis versus pneumonia. Labs Labs: Laboratory Results - last 24 hr 02/17/25 02/17/25 02/18/25 20:25 23:29 06:25 WBC 10.0 10.8 H RBC 5.09 4.77 Hgb 16.2 H 15.2 H Hct 48.6 H 46.8 MCV 95.5 98.1 MCH 31.8 31.9 MCHC 33.3 32.5 RDW 12.9 13.1 Plt Count 235 248 MPV 9.0 9.3 Immature Gran % (Auto) 0.5 0.4 Neut % (Auto) 72.8 74.6 H Lymph % (Auto) 13.2 L 14.1 L Harrison % (Auto) 10.8 H 9.4 H Eos % (Auto) 2.1 1.0 Baso % (Auto) 0.6 0.5 Lymph # (Auto) 1.31 1.52 [place] # (Auto) 1.1 H 1.0 H Eos # (Auto) 0.2 0.1 Baso # (Auto) 0.1 0.1 Abs Immat Gran (auto) 0.05 H 0.04 H Absolute Neuts (auto) 7.3 H 8.1 H Absolute Nucleated RBC 0.000 0.000 Nucleated RBC % 0.0 0.0 Sodium 135 L 138 Potassium 4.8 4.8 Chloride 101 100 Carbon Dioxide 24 28 Anion Gap 10 10 BUN 16 14 Creatinine 1.09 H 1.06 H Estim Creat Clear Calc Not Reportable 60 Estimated GFR 51 L 53 L Glucose 190 H 119 H POC Capillary Glucose 230 H Hemoglobin A1c 6.4 H Calcium 9.1 9.0 Magnesium 2.0 2.5 H Total Bilirubin 0.7 0.4 AST 29 26 ALT 18 19 Alkaline Phosphatase 77 70 NT-Pro-B Natriuret Pep 88 Total Protein 8.6 H 8.1 Albumin 4.7 4.5 02/18/25 02/18/25 08:10 11:46 WBC RBC Hgb Hct MCV MCH MCHC RDW Plt Count MPV Immature Gran % (Auto) Neut % (Auto) Lymph % (Auto) Harrison % (Auto) Eos % (Auto) Baso % (Auto) Lymph # (Auto) Harrison # (Auto) Eos # (Auto) Baso # (Auto) Abs Immat Gran (auto) Absolute Neuts (auto) Absolute Nucleated RBC Nucleated RBC % Sodium Potassium Chloride Carbon Dioxide Anion Gap BUN Creatinine Estim Creat Clear Calc Estimated GFR Glucose POC Capillary Glucose 143 H 141 H Hemoglobin A1c Calcium Magnesium Total Bilirubin AST ALT Alkaline Phosphatase NT-Pro-B Natriuret Pep Total Protein Albumin
[2025-02-18] MEDS: DOXYCYCLINE HYCLATE 100 MG TABLET PO (21:30)
[2025-02-18] MEDS: INSULIN ASPART (*BKC) 100 UNITS/ML SUB-Q (21:31)
[2025-02-18 22:04] LABS: MRSA (PCR) NOT DETECTED (NOT DETECTE)
[2025-02-19] VITALS (18 sets, daily range): BP systolic 129–147; BP diastolic 64–80; PULSE 68–96; RESP 18–22; TEMP 36.1–36.9; O2SAT 93–96
[2025-02-19] MEDS: IPRATROPIUM 0.5 MG/ALBUTEROL SULFATE 2.5 MG AMPUL.NEB 3 ML INHALATION ×4 (02:02→20:13)
[2025-02-19 05:22] LABS: PCO2 ABG 42.0 mmHg (35.0-45.0)
[2025-02-19 05:23] LABS: Alveolar/Arterial O2 Gradient 78.8 mmHg; Fractional Inspired Oxygen 28 %; HCO3 ABG 24.6 mEq/l (22.0-26.0); Liters per Minute 2.0 LPM; Modified Allen's Test Pass; Oxygen Content ABG 20.5 %vol (16.0-22.0); Oxygen Saturation ABG 94.2 % (95.0-100.0); PO2 ABG 71.3 mmHg (80.0-100.0); PO2 FiO2 Ratio Arterial Blood 2.55 %; Site Drawn RIGHT RADIAL
[2025-02-19] MEDS: busPIRone HCL 2.5 MG, busPIRone HCL 5 MG 7.5 MG PO ×2 (08:31→21:12)
[2025-02-19] MEDS: DOXYCYCLINE HYCLATE 100 MG TABLET PO ×2 (08:32→21:12)
[2025-02-19] MEDS: CHOLECALCIFEROL (VITAMIN D3) 25 MCG (1,000 UNITS) TABLET PO (08:32)
[2025-02-19] MEDS: OLMESARTAN MEDOXOMIL 20 MG TABLET PO ×2 (08:32→21:12)
[2025-02-19] MEDS: DOCUSATE SODIUM 100 MG CAPSULE PO ×2 (08:32→16:56)
[2025-02-19 09:17] LABS: Anion Gap 11 mmol/L (4-12); Blood Urea Nitrogen 16 mg/dL (7-17); Calcium 9.3 mg/dL (8.4-10.2); Carbon Dioxide 23 mmol/L (22-30); Chloride 104 mmol/L (98-107); Estimated CRCL calculation 69 ml/min; Estimated Glomerular Filt Rate > 60; Glucose 208 mg/dL (65-110); Potassium 4.3 mmol/L (3.4-5.0); Sodium 138 mmol/L (137-145)
[2025-02-19] MEDS: INSULIN ASPART (*BKC) 100 UNITS/ML SUB-Q ×2 (16:56→21:52)
--- NOTE | 2025-02-19 18:43 | P.PNIM_ITS ---
Progress Note: A&P Assessment and Plan (1) Acute pneumonia: Code(s): J18.9 - Pneumonia, unspecified organism Status: Acute Assessment and Plan: Patient presents with cough and shortness of breath. Chest x-ray shows cardiomegaly with congestive dunia and interstitial thickening suggestive pulmonary edema. Pneumonitis not excluded. Also with right basilar airspace disease Blood cultures not collected. Started on Rocephin and clarithromycin. Clarithro changed to doxycycline Mycoplasma PNA, Legionella and Strep Pneumo pending. MRSA nasal swab negative. Respiratory viral panel pending. Sputum pending (2) Acute hypoxemic respiratory failure: Code(s): J96.01 - Acute respiratory failure with hypoxia Status: Acute Assessment and Plan: Patient with acute hypoxic respiratory failure. Chest x-ray as above. Imaging reviewed independently showing right basilar airspace disease and congestive dunia 7.38/42/71 on 2L. BNP 88. Echo showing EF 65-70%, grade I diastolic dysfunction with PFO. [place] to be related to PNA. Wean oxygen as tolerated. Continue steroids. (3) Tobacco dependence due to cigarettes: Code(s): F17.210 - Nicotine dependence, cigarettes, uncomplicated Status: Chronic Assessment and Plan: Pt refuses patch, saying she is allergic to it. Patient was educated about the benefits of smoking cessation. (4) Diabetes: Qualifiers: Diabetes mellitus type: type 2 Diabetes mellitus prison insulin use: without prison use Diabetes mellitus complication status: without complication Qualified Code(s): E11.9 - Type 2 diabetes mellitus without complications Code(s): E11.9 - Type 2 diabetes mellitus without complications Status: Chronic Assessment and Plan: A1c 6.4. The patient's blood glucose was reviewed on 02/19 Glucose higher now related to steroids. Continue AccuCheks covering with sliding scale. Hypoglycemia protocol available as needed. Continue to monitor Diabetic diet (5) Hypertension: Code(s): I10 - Essential (primary) hypertension Status: Chronic Assessment and Plan: Patient's blood pressure was reviewed on 02/19 Blood pressure remains well controlled. Will continue to monitor (6) Patent foramen ovale: Code(s): Q21.12 - Patent foramen ovale Status: Acute Assessment and Plan: Echo showing right to left PFO. Cryptogenic stroke is possible but she is also at high risk for CVA with vascular risk factors including hypertension, diabetes, smoking. Discussed risk modification. Follow up with Cardiology as outpatient Plan DVT Prophylaxis - SCDs Code status - Full Subjective Date/time seen: 02/19/25 18:43 Interval history: 59yo female patient with HTN, DM, CKD who comes to the emergency room with complaints of nasal sinus drainage and a productive cough. SOB better. No CP. Cough is nonproductive. Exam Narrative: AF 97.4 133/78 87 20 93% 1L Gen - NARD Chest - CTA bilaterally CV - RRR S1/S2. Telemetry showing no significant dysrhythmias Abd - Soft, NT/ND, Positive BS Ext - No pedal edema Neuro - Alert and appropriate Psych - Nml mood and affect Skin - Warm and dry Objective Data Vital Signs Vital Signs: Vital Signs - 24 hr 02/18/25 20:00 02/18/25 20:00 02/18/25 20:50 Temperature Pulse Rate 82 77 Respiratory Rate 22 H Blood Pressure Pulse Oximetry 95 92 Oxygen Delivery Nasal Cannula Nasal Cannula Oxygen Flow Rate 2 2 02/18/25 20:52 02/18/25 21:02 02/18/25 21:36 Temperature 98.0 F Pulse Rate 73 76 74 Respiratory Rate 23 H 23 H 24 H Blood Pressure 140/66 Pulse Oximetry 95 Oxygen Delivery Oxygen Flow Rate 02/19/25 00:00 02/19/25 02:05 02/19/25 02:14 Temperature Pulse Rate 96 80 82 Respiratory Rate 22 H 22 H Blood Pressure Pulse Oximetry Oxygen Delivery Oxygen Flow Rate 02/19/25 04:00 02/19/25 06:00 02/19/25 07:21 Temperature 97.4 F L Pulse Rate 84 82 Respiratory Rate 20 Blood Pressure 133/78 Pulse Oximetry 93 96 Oxygen Delivery Nasal Cannula Oxygen Flow Rate 2 02/19/25 07:21 02/19/25 07:33 02/19/25 07:55 Temperature Pulse Rate 75 80 Respiratory Rate 22 H 22 H Blood Pressure Pulse Oximetry 93 Oxygen Delivery Nasal Cannula Oxygen Flow Rate 1 02/19/25 08:00 02/19/25 08:00 02/19/25 12:00 Temperature Pulse Rate 93 94 Respiratory Rate Blood Pressure Pulse Oximetry 93 Oxygen Delivery Nasal Cannula Oxygen Flow Rate 1 02/19/25 13:39 02/19/25 13:52 Temperature Pulse Rate 87 87 Respiratory Rate 20 20 Blood Pressure Pulse Oximetry Oxygen Delivery Oxygen Flow Rate Intake/Output Intake/Output: Intake & Output 02/16/25 02/17/25 02/18/25 02/19/25 23:59 23:59 23:59 23:59 Intake Total 1100 1100 1310 Output Total 200 Balance 5779 871 9303 Meds/Results Medications: Active Medications Generic Name Dose Route Start Last Admin Trade Name Freq PRN Reason Stop Dose Admin Acetaminophen 650 mg 02/17/25 21:34 02/18/25 22:57 Acetaminophen 325 Mg Tablet PO 650 mg Q4H PRN Administration Mild Pain (1-3) or Fever Albuterol 2.5 mg 02/17/25 23:22 Albuterol Sulfate Neb 2.5 Mg/3 Ml Inh INHALATION Q4HRT PRN Shortness Of Breath Albuterol/Ipratropium 3 ml 02/18/25 02:00 02/19/25 13:38 Ipratropium 0.5 Mg/Albuterol Sulfate 2.5 Mg Ampul.Neb 3 Ml INHALATION 3 ml Q6HRT SHAYLA Administration Buspirone HCl 2.5 mg/ 7.5 mg 02/19/25 09:00 02/19/25 08:31 Buspirone HCl 5 mg PO 7.5 mg Q12HR SHAYLA Administration Dextrose 12.5 gm 02/17/25 23:22 Dextrose 50% 25 Gm/50 Ml Syringe IV PUSH PRN PRN Hypoglycemia Protocol Docusate Sodium 100 mg 02/18/25 09:00 02/19/25 16:56 Docusate Sodium 100 Mg Capsule PO 100 mg BID SHAYLA Administration Doxycycline Hyclate 100 mg 02/18/25 21:00 02/19/25 08:32 Doxycycline Hyclate 100 Mg Tablet PO 02/25/25 09:01 100 mg Q12HR SHAYLA Administration Gabapentin 100 mg 02/17/25 23:02 Gabapentin 100 Mg Capsule PO TID PRN nerve pain Glucagon 1 mg 02/17/25 23:22 Glucagon For Inj 1 Mg Vial IM PRN PRN Hypoglycemia Protocol Glucose 15 gm 02/17/25 23:22 Glucose Oral Gel 15 Gm Of Glucse In 37.5 Gm Tube PO PRN PRN Hypoglycemia Protocol Ceftriaxone Sodium 1 gm in 50 mls @ 100 mls/hr 02/18/25 22:00 02/18/25 22:09 Rocephin 1 Gm/Ns 50 Ml IVPB Infused Q24H SHAYLA Infusion Dextrose 1,000 mls @ 100 mls/hr 02/17/25 23:22 Dextrose 5% 1,000 Ml IVPB PRN PRN Hypoglycemia Protocol Insulin Aspart 2 - 5 units 02/18/25 08:00 02/19/25 16:56 Insulin Aspart (*Bkc) 100 Units/Ml SUB-Q 2 units TIDWM SHAYLA Administration Protocol Insulin Aspart 1 - 2 units 02/18/25 21:00 02/18/25 21:31 Insulin Aspart (*Bkc) 100 Units/Ml SUB-Q 1 units HS SHAYLA Administration Protocol Olmesartan 20 mg 02/17/25 23:05 02/19/25 08:32 Olmesartan Medoxomil 20 Mg Tablet PO 20 mg Q12HR SHAYLA Administration Perflutren Lipid Microsphere 0 ml 02/18/25 15:57 Perflutren Lipid Microspheres 1.5 Ml Vial Diluted To 10 Ml Total Volume IV PUSH 02/21/25 15:57 ONCE PRN adequate visualization Protocol Prednisone 40 mg 02/19/25 08:00 02/19/25 08:32 Prednisone 20 Mg Tablet PO 02/22/25 08:01 40 mg DAILY@0800 SHAYLA Administration Sodium Chloride 1 spray 02/18/25 12:04 02/18/25 13:08 Saline 0.65% Antonio Soln 44 Ml Btl NASAL 1 spray Q6HR PRN Administration Congestion Vitamin D 25 mcg 02/18/25 09:00 02/19/25 08:32 Cholecalciferol (Vitamin D3) 25 Mcg (1,000 Units) Tablet PO 25 mcg DAILY SHAYLA Administration Radiology Results: ITS Impressions Chest X-Ray 02/17/25 21:05 IMPRESSION: Cardiomegaly with congestive dunia and interstitial thickening suggestive of pulmonary edema. Pneumonitis is not excluded. Right basilar atelectasis versus pneumonia. Labs Labs: Laboratory Results - last 24 hr 02/18/25 02/18/25 02/19/25 20:21 20:45 00:28 Puncture Site ABG pH ABG pCO2 ABG pO2 ABG PO2/FiO2 Ratio ABG HCO3 ABG O2 Saturation ABG O2 Content ABG Base Excess A-a Gradient Oxyhemoglobin Total Hemoglobin O2 Delivery Device O2 Liters/Min FiO2 Sodium Potassium Chloride Carbon Dioxide Anion Gap BUN Creatinine Estim Creat Clear Calc Estimated GFR Glucose POC Capillary Glucose 201 H 233 H Calcium Nasal MRSA (PCR) Not detected 02/19/25 02/19/25 02/19/25 05:03 08:11 08:55 Puncture Site Right radial ABG pH 7.386 ABG pCO2 42.0 ABG pO2 71.3 L ABG PO2/FiO2 Ratio 2.55 ABG HCO3 24.6 ABG O2 Saturation 94.2 L ABG O2 Content 20.5 ABG Base Excess -0.5 A-a Gradient 78.8 Oxyhemoglobin 93.7 Total Hemoglobin 15.6 O2 Delivery Device Nasal cannula O2 Liters/Min 2.0 FiO2 28 Sodium 138 Potassium 4.3 Chloride 104 Carbon Dioxide 23 Anion Gap 11 BUN 16 Creatinine 0.91 Estim Creat Clear Calc 69 Estimated GFR > 60 Glucose 208 H POC Capillary Glucose 191 H Calcium 9.3 Nasal MRSA (PCR) 02/19/25 02/19/25 12:09 16:48 Puncture Site ABG pH ABG pCO2 ABG pO2 ABG PO2/FiO2 Ratio ABG HCO3 ABG O2 Saturation ABG O2 Content ABG Base Excess A-a Gradient Oxyhemoglobin Total Hemoglobin O2 Delivery Device O2 Liters/Min FiO2 Sodium Potassium Chloride Carbon Dioxide Anion Gap BUN Creatinine Estim Creat Clear Calc Estimated GFR Glucose POC Capillary Glucose 178 H 243 H Calcium Nasal MRSA (PCR)
[2025-02-19] MEDS: guaiFENesin 12 HR 600 MG TABCR PO (21:12)
[2025-02-19] MEDS: MAGNESIUM HYDROXIDE SUSP 30 ML UDC PO (21:13)
[2025-02-20] VITALS (19 sets, daily range): BP systolic 132–147; BP diastolic 70–73; PULSE 72–105; RESP 18–20; TEMP 36.4–36.5; O2SAT 86–97
[2025-02-20] MEDS: IPRATROPIUM 0.5 MG/ALBUTEROL SULFATE 2.5 MG AMPUL.NEB 3 ML INHALATION ×3 (02:36→13:34)
--- NOTE | 2025-02-20 10:18 | HOMEO2EVAL ---
Evaluation was performed at [facility] Home Oxygen Evaluation RC: Home Oxygen (O2) Evaluation Start: 02/20/25 07:04 Freq: ONCE Status: Active Protocol: RPE Activity Type Activity Date Activity User E-sign Co-sign Detail Recorded Client Recorded Date Recorded By Document 02/20/25 09:45 RES [email or web address] 02/20/25 10:12 RES Document 02/20/25 09:46 RES [email or web address] 02/20/25 10:12 RES Document 02/20/25 09:47 RES [email or web address] 02/20/25 10:12 RES Document 02/20/25 09:48 RES [email or web address] 02/20/25 10:12 RES Document 02/20/25 09:49 RES [email or web address] 02/20/25 10:12 RES Document 02/20/25 09:50 RES [email or web address] 02/20/25 10:12 RES Document 02/20/25 09:51 RES [email or web address] 02/20/25 10:12 RES Document 02/20/25 09:52 RES [email or web address] 02/20/25 10:12 RES Document 02/20/25 09:53 RES [email or web address] 02/20/25 10:12 RES 02/20/25 02/20/25 02/20/25 09:45 09:46 09:47 Home O2 Evaluation [Oxygen] -Test Phase Resting Exercise Exercise -Oxygen Delivery Room Air Room Air Room Air -Oxygen Flow Rate (L/min) -Fraction of Inspired Oxygen (%) 21 21 21 [Pulse Oximetry] -Pulse Oximetry (90-100 %) 91 90 88 L [Pulse Rate] -Pulse Rate (60-100 beats/min) 94 95 97 [Evaluation] -Activity Tolerance Good Good Good -Rating of Perceived Dyspnea (PD) +2 Mild, Some +2 Mild, Some +2 Mild, Some Difficulty, Difficulty, Difficulty, Noticeable to Noticeable to Noticeable to the Observer the Observer the Observer -Rate of Perceived Exertion (PE) 9 Very light 9 Very light 9 Very light Query Text:Click the Protocol Button to View the RPE Scale [Exercise] -Ambulation Distance (feet) -Ambulation Distance (meters) [Comments] -Home Oxygen Evaluation Comments placed patient on 1lpm nasal cannula [Charges] -Evaluation Charges O2 Evaluation by 02/20/25 02/20/25 02/20/25 09:48 09:49 09:50 Home O2 Evaluation [Oxygen] -Test Phase Exercise Exercise Exercise -Oxygen Delivery Nasal Cannula Nasal Cannula Nasal Cannula -Oxygen Flow Rate (L/min) 1 2 2 -Fraction of Inspired Oxygen (%) 24 28 28 [Pulse Oximetry] -Pulse Oximetry (90-100 %) 86 L 90 92 [Pulse Rate] -Pulse Rate (60-100 beats/min) 98 102 H 104 H [Evaluation] -Activity Tolerance Good Good Good -Rating of Perceived Dyspnea (PD) +2 Mild, Some +2 Mild, Some +2 Mild, Some Difficulty, Difficulty, Difficulty, Noticeable to Noticeable to Noticeable to the Observer the Observer the Observer -Rate of Perceived Exertion (PE) 9 Very light 10 10 Query Text:Click the Protocol Button to View the RPE Scale [Exercise] -Ambulation Distance (feet) -Ambulation Distance (meters) [Comments] -Home Oxygen Evaluation Comments increased patient to 2lpm nasal cannula [Charges] -Evaluation Charges 02/20/25 02/20/25 02/20/25 09:51 09:52 09:53 Home O2 Evaluation [Oxygen] -Test Phase Exercise Exercise Resting -Oxygen Delivery Nasal Cannula Nasal Cannula Nasal Cannula -Oxygen Flow Rate (L/min) 2 2 2 -Fraction of Inspired Oxygen (%) 28 28 28 [Pulse Oximetry] -Pulse Oximetry (90-100 %) 94 93 96 [Pulse Rate] -Pulse Rate (60-100 beats/min) 105 H 103 H 103 H [Evaluation] -Activity Tolerance Good Good Good -Rating of Perceived Dyspnea (PD) +2 Mild, Some +2 Mild, Some +2 Mild, Some Difficulty, Difficulty, Difficulty, Noticeable to Noticeable to Noticeable to the Observer the Observer the Observer -Rate of Perceived Exertion (PE) 10 10 10 Query Text:Click the Protocol Button to View the RPE Scale [Exercise] -Ambulation Distance (feet) 900 -Ambulation Distance (meters) 274.30 [Comments] -Home Oxygen Evaluation Comments [Charges] -Evaluation Charges
[2025-02-20] MEDS: guaiFENesin 12 HR 600 MG TABCR PO (11:01)
[2025-02-20] MEDS: busPIRone HCL 2.5 MG, busPIRone HCL 5 MG 7.5 MG PO (11:01)
[2025-02-20] MEDS: CHOLECALCIFEROL (VITAMIN D3) 25 MCG (1,000 UNITS) TABLET PO (11:02)
[2025-02-20] MEDS: DOCUSATE SODIUM 100 MG CAPSULE PO (11:02)
[2025-02-20] MEDS: OLMESARTAN MEDOXOMIL 20 MG TABLET PO (11:02)
[2025-02-20] MEDS: DOXYCYCLINE HYCLATE 100 MG TABLET PO (11:02)
--- NOTE | 2025-02-20 13:14 | PM.DS ---
DS: Admitting Diagnosis Discharge Date 02/20/25 Admitting Diagnosis Cough DS: Discharge Diagnosis Discharge Diagnosis (1) Acute pneumonia: Code(s): J18.9 - Pneumonia, unspecified organism Status: Acute (2) Acute hypoxemic respiratory failure: Code(s): J96.01 - Acute respiratory failure with hypoxia Status: Acute (3) Tobacco dependence due to cigarettes: Code(s): F17.210 - Nicotine dependence, cigarettes, uncomplicated Status: Chronic (4) Diabetes: Qualifiers: Diabetes mellitus type: type 2 Diabetes mellitus mcc insulin use: without long term care administrator use Diabetes mellitus complication status: without complication Qualified Code(s): E11.9 - Type 2 diabetes mellitus without complications Code(s): E11.9 - Type 2 diabetes mellitus without complications Status: Chronic (5) Hypertension: Code(s): I10 - Essential (primary) hypertension Status: Chronic (6) Patent foramen ovale: Code(s): Q21.12 - Patent foramen ovale Status: Acute DS: Summary Hospital Course Reason for hospitalization: 59yo female patient with HTN, DM, CKD who comes to the emergency room with complaints of nasal sinus drainage and a productive cough. Please see H&P for details. Hospital Course: Patient presented with cough and shortness of breath. Chest x-ray shows cardiomegaly with congestive dunia and interstitial thickening suggestive pulmonary edema. Pneumonitis not excluded. Also with right basilar airspace disease. Patient with acute hypoxic respiratory failure. ABG 7.38/42/71 on 2L. BNP 88. Echo showing EF 65-70%, grade I diastolic dysfunction with PFO. [place] respiratory failure related to PNA. Blood cultures not collected. Started on Rocephin and clarithromycin. Clarithro changed to doxycycline. Mycoplasma PNA, Legionella and Strep Pneumo pending. MRSA nasal swab negative. Respiratory viral panel pending. Sputum pending. Steroids started. Patient was educated about the benefits of smoking cessation. A1c 6.4. The patient's blood glucose was monitored with AccuCheks covering with sliding scale. Hypoglycemia protocol available as needed. For the PFO, she is at risk for cryptogenic stroke but she is also at high risk for CVA with vascular risk factors including hypertension, diabetes, smoking. Discussed the benefits of risk modification. Plan for her to follow up with Cardiology as outpatient. She will also need formal PFT testing once she is well. She was tested for home O2 and still needs 2L. She overall did well and was able to be discharged on 02/20/25. Status at Discharge Cognitive/behavioral status at discharge: stable Time Spent with Patient Time attestation: Total time spent providing and/or coordinating discharge services: 34 minutes Exam Narrative: AF 7.6 147/73 103 20 96% 2L Gen - NARD Chest - scattered expiratory rhonchi CV - RRR S1/S2 Abd - Soft, NT/ND, Positive BS Ext - No pedal edema Psych - Nml mood and affect Skin - Warm and dry DS: Data Data Completed and Pending Labs on day of discharge: Labs from last 24 hours 02/20/25 02/20/25 02/19/25 07:50 05:04 19:58 POC Capillary Glucose 127 H 97 233 H 02/19/25 16:48 POC Capillary Glucose 243 H Preliminary micro results at discharge 02/19/25 05:07 Sputum Culture - Preliminary Sputum Discharge Plan Discharge Attending physician on discharge: Porter Jenkins Discharging Clinician: Porter Jenkins Anticipated Discharge Date/Time: 02/20/25 13:24 Patient Disposition: Home Activity: as tolerated Diet: diabetic Discharge Instructions: Please check glucose before meals and before bed. Record and bring into your doctor for review. Check blood pressure 1 to 2 times a day. Record and bring into your doctor for review. Call your doctor if your blood pressure is greater than 180/110. Please complete your antibiotic course even if you are starting to feel well. Contact your doctor or call 911 and come to the Emergency Room if you have fever, worsening shortness of breath or other worrisome symptoms. Avoid NSAIDs (ibuprofen, naproxen, Aleve). Tylenol is safe to take. Continue to wear oxygen at 2Liters/min at all times. Talk with your doctor about repeat testing to see if you will continue to need oxygen. Follow-up with your primary care provider in 1-2 weeks. Please call for appointment. Discuss with your doctor about other testing to assess your lung function Follow-up with Cardiology in 1-2 weeks. Please call for an appointment. Thank you for using [facility] for your health care needs. Patient Instructions: Antibiotic Form Patient Language: Hong Konger Stand Alone Forms: General Discharge Information Follow-up/Referrals: Hamlet Duran MD [Physician] - Call for Appointment Velvet Tesfaye, [employer] END FINDER [Primary Care Provider] - Call for Appointment Discharge Medications: New prednisone 20 mg Tablet 40 mg PO DAILY@0800 2 Days Qty: 4 0RF doxycycline hyclate 100 mg Tablet 100 mg PO Q12HR Qty: 10 0RF buspirone 7.5 mg Tablet 7.5 mg PO Q12HR Qty: 60 0RF albuterol sulfate 90 mcg/actuation HFA aerosol inhaler 2 puff inhalation QID PRN (Reason: shortness of breath or wheezing) Qty: 6.7 0RF cefdinir 300 mg capsule 300 mg PO Q12H Qty: 8 0RF Continued docusate sodium [Colace] 100 mg capsule 100 mg PO BID cholecalciferol (vitamin D3) 25 mcg (1,000 unit) capsule 25 mcg PO DAILY (DME) lancets [Comfort EZ Lancets] 28 gauge misc See Rx Instructions .Route Qty: 100 0RF Rx Instructions: daily olmesartan 20 mg tablet 20 mg PO .two times daily Qty: 180 3RF gabapentin 100 mg capsule 100 mg PO TID PRN (Reason: nerve pain) Qty: 90 3RF (DME) blood-glucose meter [OneTouch Ultra2 Meter] Misc See Rx Instructions .Route Qty: 1 0RF Rx Instructions: Use to check blood sugar once daily. (DME) OneTouch Ultra Test Strip See Rx Instructions .Route Qty: 100 0RF Rx Instructions: Use to check blood sugar once daily Discontinued bupropion HCl (smoking deter) 150 mg tablet extended release 12 hr 150 mg PO BID Qty: 60 5RF Date of admission: 02/17/25 21:34 Primary Care Provider: Velvet Tesfaye Admitting Provider: Porter Jenkins Attending physician on admission: Porter Jenkins Condition: Stable Hospitalist MIPS Heart Failure (Exclusion) Patient has history of Heart Transplant or Left Ventricular Assistive Device?: No IF YES, STOP HERE Heart Failure (Qualifier) Patient has current or prior documentation of LVEF less than or equal to 40%, or mod/servere depressed LVSF?: No IF NO, STOP HERE
[2025-02-21 18:38] LABS: Pneumococcal Antigen Urine NOT DETECTED
[2025-02-24 16:58] LABS: Source FLEX SWAB
[2025-02-25 18:09] LABS: Legionella pneumophila Ag Ur. NOT DETECTED
== END 2025-02-20 14:50 | disposition home or self-care (01) | DRG 193 ==
LOC: ANHED 21:55 → ANH3MEDSUR 22:13
PROVIDERS: Nurse Practitioner Adult Health; Admitting Provider Internal Medicine; Emergency Provider Student in an Organized Health Care Education/Training Program; PCP Nurse Practitioner Family; Visit Provider Internal Medicine
DX: J18.9 Pneumonia, unspecified organism (principal); J96.01 Acute respiratory failure with hypoxia; Q21.12 Patent foramen ovale; I12.9 Hypertensive chronic kidney disease with stage 1 through stage 4 chronic kidney disease, or unspecified chronic kidney disease; E11.22 Type 2 diabetes mellitus with diabetic chronic kidney disease; N18.9 Chronic kidney disease, unspecified; F17.210 Nicotine dependence, cigarettes, uncomplicated
CPT/HCPCS: 36415; 36600; 71045; 80048; 80053; 82805; 82948; 83036; 83735; 83880; 85018; 85025; 87070; 87205; 87254; 87449; 87633; 87641; 87899; 93306; 94618; 94640; 94667; 96361; 96365; 96367; 96375; 99291; A9270; J0696; J1815; J3475; J7120; J7512

== ENCOUNTER 2025-04-28 14:02 | Outpatient (CLI) | payer OTHER, SELFPAY ==
--- OUTSIDE RECORDS SUMMARY | 2025-04-28 14:40 | XMS_ITS | Clinical Summary ---
Author Organization [facility] Address [address] [place] [id number] Care Team Providers Care Silk Screen Operator Name Role Phone Elisa Gonzales MD Primary Care Provider + Allergies Active Allergy Reactions Criticality Noted Date Comments Amoxicillin-Pot Clavulanate Swelling 06/23/20 Ciprofloxacin Swelling 06/23/2022 Erythromycin Swelling 12/14/2024 Metformin Shortness of Breath,Swelling High 01/19/2025 Naproxen Swelling 06/23/2022 Penicillins Swelling 06/23/2022 Sulfa Antibiotics Swelling 09/16/2022 Medications docusate sodium (COLACE) 50 MG capsule Take 1 capsule (50 mg total) by mouth 2 (two) times daily. Active Cholecalciferol (VITAMIN D-3) 25 MCG (1000 UT) Cap Take 1,000 Int'l Units by mouth daily. Active Coenzyme Q10 (COQ10) 100 MG Cap Take 100 mg by mouth daily. Active gabapentin (NEURONTIN) 100 MG capsule Take 1 capsule (100 mg total) by mouth as needed. daily Active Active Problems Problem Noted Date Diagnosed Date [...] current use of insulin, unspecified CKD stage ([facility]) 12/14/2024 Overview (12/24/2024): Regimen: Metformin 500 mg [...] AM CDT): Due for mammogram. Ordered to [facility]. Current mild episode of jess r [...] for malignant neoplasm of colon 01/19/2025 01/25/2025 Encounter for screening for malignant neoplasm of colon 01/19/2025 03/01/2025 Need for shingles vaccine 12/14/2024 Encounters Date Type Department Care Team Description 03/01/2025 Telephone [facility] General Surgery [address], [address] [place] [phone] Anjel Yip MD Schedule Surgery 01/29/2025 Orders Only [facility] General Surgery [address], [address] [place] [phone] Anjel Yip MD from Last 3 Months Immunizations Immunization Administration [...] Date Smoking Tobacco: Every Day Cigarettes 1 5.4 Started: 12/18/2024 Smokeless Tobacco: Never Tobacco Cessation:Ready [...] 12/24/2024 11:10 AM CDT Plan of Treatment Health Maintenance Due Date Last Done Comments Cervical Cancer Screening Pa p Smear (Age 30 to 64) Every 3 Years 1964 Colorectal Cancer Screening Colonoscopy (10 Years) 1964 Annual Physical 1967 Diabetes: Retinopathy Eye Exam 1982 Cervical Cancer Screening Pa p with HPV Testing (Age 30 to 64) Every 5 Years 1994 Cervical Cancer Screening wi th HPV 1994 Mammogram Screening 2004 Zoster Vaccines (1 of 2) 2014 RSV Immunization or 60+ Years (1 - Risk 60-74 years 1-dose series) 2024 COVID-19 Vaccine (2 - 2024-2 6 season) 2025 03/09/2021 Hemoglobin A1C 06/15/2025 12/14/2024, 07/20/2024 Kidney Health Evaluation 12/14/2025 12/14/2024 Lipid Panel 12/14/2025 12/14/2024 DTaP, Tdap and Td Vaccines ( 2 - Td or Tdap) 06/03/2028 06/03/2018 Hepatitis C Completed 12/14/2024 PHQ-2 (Physician [place]) Completed 12/14/2024 Pneumococcal Vaccine: 50+ Years Completed 12/14/2024 Meningococcal B Vaccine Aged Out No l onger eligible based on patient's age to complete this topic Meningococcal Vaccine Aged Out No hollis nacho eligible based on patient's age to complete this topic RSV Immunizations Under 20 Months Aged Out No longer eligible b ased on patient's age to complete this topic Procedures Procedure Name Priority Date/Time Associated Diagnosis Comments HEPATITIS C ANTIBODY Routine 12/14/2024 9:34 AM CDT Encounter for hepatitis C screening test for low risk patient LIPID PANEL Routine 12/14/2024 9:34 AM CDT Type 2 diabetes mellitus with chronic kidney disease, without long-term current use of insulin, unspecified CKD stage (CMS/HCC HHS/HCC) Class 2 severe obesity with serious comorbidity and body mass index (BMI) of 37.0 to 37.9 in adult, unspecified obesity type (CMS/HCC) HEMOGLOBIN, GLYCOSYLATED Routine 12/14/2024 Type 2 diabetes mellitus with chronic kidney disease, without long-term current use of insulin, unspecified CKD stage (CMS/HCC HHS/HCC) from Last 3 Months or Most Recently Relevant to Health Maintenance Results * (ABNORMAL) LIPID PANEL (12/14/2024 9:34 AM CDT) CHOLESTEROL 194 <200 MG/DL 12/14/2024 3:21 PM CDT [facility] TRIGLYCERIDES 159(H) <150 MG/DL 12/14/2024 3:21 PM CDT [facility] HDL 43 >40 MG/DL 12/14/2024 3:21 PM CDT [facility] LDL-C 119(H) <100 MG/DL 12/14/2024 3:21 PM CDT [facility] VLDL CALCULATION 32(H) 5 - 28 MG/DL 12/14/2024 3:21 PM CDT [facility] CHOL/HDL RATIO 4.5(H) 0.0 - 4.0 12/14/2024 3:21 PM CDT [facility] LDL/HDL 2.8(H) 0.41 - 2.13 12/14/2024 3:21 PM CDT [facility] NON HDL CHOLESTEROL 151(H) <140 MG/DL 12/14/2024 3:21 PM CDT [facility] 12/14/2024 9:34 AM CDT us Bethany Macias DO LABORATORY Final Result [facility] [address] [place] [phone], * HEPATITIS C ANTIBODY (12/14/2024 9:34 AM CDT) HEPATITIS C AB NON-REACTI VE NON-REACT JOSE 12/14/2024 6:50 PM CDT [facility] Comment: ANTIBODIES TO HCV NOT DETECTED. DOES NOT EXCLUDE THE POSSIBILITY OF EXPOSURE TO HCV. 12/14/2024 9:34 AM CDT Bethany Macias DO LABORATORY Final Result [facility] [address] [place] [address], [id number] * HEMOGLOBIN, GLYCOSYLATED (12/14/2024) HGB A1C 6.6 % [id number] [place] 12/14/2024 Bethany Macias DO LABORATORY Final Result Performing Organization Address City/[facility] Co de Phone Number [phone], [place] [address] [address] [place] [address], from Last 3 Months or Most Recently Relevant to Health Maintenance Insurance [employer] Care Teams Silk Screen Operator Relationship Specialty Start Date End Date Elisa Gonzales MD [id number] [facility] [address] [place] [id number] PCP - General FAMILY PRACTICE 04/12/25
--- NOTE | 2025-05-07 16:48 | P.PCNPFT_ITS ---
PFT Procedure Performed PFT Procedure Performed Spirometry with Pre/Post Bronchodilator Plethysmography (Lung Vol) Diffusing Cap (DLCO) Flow Vol Loop PFT Interpretation DOS: 04/28 REQUESTING: Velvet Tesfaye APRN REASON FOR TESTING: Acute respiratory failure, recent pneumonia PULMONARY FUNCTION TESTS Results are reliable and reproducible. Repeatability of spirometry FEV1 maneuver pre and post bronchodilator is Grade A. Daniel: GLI 2012 reference equations were used. Spirometry: The pre-bronchodilator FEV1 is 1.42 L, 61%, reduced. The pre- bronchodilator FVC is 1.87 L, 64%, reduced. The FEV1/FVC ratio is 76%, normal. After bronchodilator, the FEV1 is 1.57 L, 68%, 11% increase. After bronchodilator, the FVC is 2.01 L, 69%, +7% increase. The FEV1/FVC ratio is 78%. Lung volumes: The total lung capacity is 4.06 L, 86%, normal. The functional residual capacity is 2.47 L, 84%, normal. The residual volume is 2.17 L, 112%, normal. The RV/TLC is 54%, increased, consistent with air trapping. Airway resistance is increased. Diffusion: DLCO is 14.4, 64%, decreased. The DLCO/VA is 4.57, 105%, normal. Flow volume loop: The flow volume loop shows a normal tracing. IMPRESSION: Spirometry shows decrease in FEV1 and FVC with a normal FEV1/FVC ratio, minimal response to bronchodilator, mild air trapping, and a mild decrease in diffusion which corrects for alveolar volume. Lack of response to bronchodilator should not preclude use if clinically indicated. A reduced FEV1 with a preserved ratio is known as PRISm, preserved ratio impaired spirometry. In this condition the forced vital capacity and the FEV1 are decreased but the ratio remains normal or high. This can be associated with a higher risk of respiratory and cardiovascular problems. This can be linked to obesity, being underweight and sometimes restrictive lung conditions. Clinical correlation is recommended. Luda Benites MD
== END 2025-04-28 14:03 | disposition home or self-care (01) ==
PROVIDERS: PCP Nurse Practitioner Family; Visit Provider Nurse Practitioner Family
DX: J96.01 Acute respiratory failure with hypoxia (principal); Z99.81 Dependence on supplemental oxygen; Q21.12 Patent foramen ovale
CPT/HCPCS: 94060; 94726; 94729